=== PATIENT | male | born 1940 | race Caucasian/White ===

== ENCOUNTER 2016-11-30 08:19 | Emergency (ER) | payer BC, OTHER ==
[~2016-11-30] VITALS: Ht 180.3 cm; Wt 81.5 kg
[~2016-11-30 08:19] MED LIST: ALPR0.5T PO; CLX/20 PO; ZONI100C39 PO
[2016-11-30 08:23] VITALS: TEMP 36.7; Ht 180.3 cm; Wt 81.5 kg
--- NOTE | 2016-11-30 09:00 | EMERGENCY ROOM VISIT NOTE ---
History Report prepared by Prudencio: Igor Brumfield Under the Supervision of: Dr. Meka Pearson D.O. First contact with patient: 08:30 Chief Complaint: CONFUSION Stated Complaint: CONFUSION Nursing Triage Summary: ALTERED MENTAL STATUS. TOUNGE PAIN FROM BITE. POSSIBLE RECENT SEIZURE, HX OF SEIZURES. VOMITING AND LETHARGY YESTERDAY. History of Present Illness The patient is a 76 year old male who presents to the Emergency Room with complaints of intermittent confusion beginning 2 days ago. Per the patient's daughter, she believes he may have had some seizures over the last 2 days. He vomited 2 days ago, and may have been dehydrated as he slept all day this past weekend. She gave him Pedialyte. The patient has been brought in to the ER before for similar symptoms. He felt fine yesterday, but did not recall much from the day before. He was unable to remember his girlfriend's name in triage, but was able to remember while in the room. This morning he called and noted he did not feel right, and felt like he was going to have a seizure. The patient typically will stare, and his hands or feet will tremor during these seizure episodes. The patient states that he fell off his horse 6 years ago, and since then has been having recurrent seizures. He denies having seizures prior to the horse accident. He denies having any fever, chills, chest pain, shortness of breath, diarrhea, or leg cramping or swelling. He also denies any nausea or vomiting since vomiting 2 days ago. He denies any recent falls, and notes he has felt somewhat tired but not necessarily weak. He admits to biting his tongue 2 days ago. 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 He reports taking Zonegran regularly, but has not taken any this morning yet. He also takes Xanax to help with sleeping, which he believes he last took 2 days ago. The patient follows with Dr. Rubalcava in neurology. Source of History: patient, family Onset: 2 days ago Position: head Quality: other (confusion) Timing: intermittent Associated Symptoms: + fatigue, + nausea, + vomiting, No SOB, No chest pain , No chills, No diarrhea, No fevers, No weakness Note: Patient also denies leg cramping Review of Systems See HPI for pertinent positives & negatives. A total of 10 systems reviewed and were otherwise negative. Past Medical & Surgical Medical Problems: (1) Anxiety (2) Depression (3) Seizure Surgical Problems: (1) H/O colonoscopy (2) H/o mastoid procedure (3) History of cataract surgery Family History Cancer Social History Smoking Status: Never Smoker Drug Use: none Marital Status: Housing Status: lives with family Occupation Status: retired Current/Historical Medications Scheduled Alprazolam (Xanax), 0.5 MG PO QPM Zonisamide (Zonegran), 300 MG PO Q12 Allergies Coded Allergies: No Known Allergies (Unverified , 11/30/16) Physical Exam Vital Signs Date Time Temp Pulse Resp B/P Pulse Ox O2 Delivery O2 Flow Rate FiO2 11/30/16 10:31 61 17 136/65 96 11/30/16 09:53 60 17 126/76 96 11/30/16 08:23 36.7 72 18 141/81 95 Room Air Physical Exam General: Patient is sometimes slow to answer questions. HEENT: Head - normocephalic and atraumatic. Pupils are equal, round, and reactive to light. Extraocular eye muscles are intact and sclera are anicteric. Ears - bilaterally patent canals with noninjected tympanic membranes and no evidence of hemotympanum. Nose - moist nasal mucosa without discharge. Mouth - moist buccal mucosa. Oropharynx is nonerythematous and there is no tonsillar exudate or edema noted. Neck: Supple; no JVD, nuchal rigidity, cervical lymphadenopathy. Heart: Regular rate and rhythm. There is a normal S1 and S2 with no murmurs, clicks, or gallops appreciated. Lungs: Clear to auscultation bilaterally with no wheezes, rales, or rhonchi. Abdomen: Soft, completely nontender, nondistended, with good bowel sounds. There are no palpable pulsatile masses or hepatosplenomegaly. There is no guarding, rigidity, or rebound noted. Extremities: No evidence of cyanosis, clubbing, or edema. There are easily palpable peripheral pulses. Neuro:The patient is awake and alert, oriented to day, time, and place. Muscle strength is 5/5 in all 4 extremities. The patient has equal neurology hospitalist strength and equal pedal push and pull. There are no cerebellar signs. Medical Decision & Procedures ER Provider Diagnostic Interpretation: Radiology results as stated below per my review and the radiologist's interpretation: CT OF THE HEAD WITHOUT CONTRAST FINDINGS: No acute intracranial hemorrhage, midline shift or mass effect is present. Ventricular system is stable. Basilar cisterns are patent. There are no extra axial collections. Marshall-white differentiation is maintained. There are no findings to suggest acute dural sinus thrombosis or acute territorial infarct. There are no significant calvarial abnormalities. Visualized portions of the sinuses and the mastoid air cells are clear. IMPRESSION: No acute intracranial findings. Electronically signed by: Rex Carvajal M.D. 11/30/2016 9:19 AM Dictated Date/Time: 11/30/2016 9:16 AM Laboratory Results 11/30/16 08:55 Red Blood Count 4.74, Mean Corpuscular Volume 88.2, Mean Corpuscular Hemoglobin 31.9, Mean Corpuscular Hemoglobin Concent 36.1, Mean Platelet Volume 8.9, Neutrophils (%) (Auto) 69.1, Lymphocytes (%) (Auto) 18.2, Monocytes (%) (Auto) 11.4, Eosinophils (%) (Auto) 0.5, Basophils (%) (Auto) 0.6, Neutrophils # (Auto ) 4.36, Lymphocytes # (Auto) 1.15, Monocytes # (Auto) 0.72, Eosinophils # (Auto ) 0.03, Basophils # (Auto) 0.04 11/30/16 08:55 Test 11/30/16 08:55 White Blood Count 6.31 K/uL (4.8-10.8) Red Blood Count 4.74 M/uL (4.7-6.1) Hemoglobin 15.1 g/dL (14.0-18.0) Hematocrit 41.8 % (42-52) Mean Corpuscular Volume 88.2 fL (80-100) Mean Corpuscular Hemoglobin 31.9 pg (25-34) Mean Corpuscular Hemoglobin Concent 36.1 g/dl (32-36) Platelet Count 208 K/uL (130-400) Mean Platelet Volume 8.9 fL (7.4-10.4) Neutrophils (%) (Auto) 69.1 % Lymphocytes (%) (Auto) 18.2 % Monocytes (%) (Auto) 11.4 % Eosinophils (%) (Auto) 0.5 % Basophils (%) (Auto) 0.6 % Neutrophils # (Auto) 4.36 K/uL (1.4-6.5) Lymphocytes # (Auto) 1.15 K/uL (1.2-3.4) Monocytes # (Auto) 0.72 K/uL (0.11-0.59) Eosinophils # (Auto) 0.03 K/uL (0-0.5) Basophils # (Auto) 0.04 K/uL (0-0.2) RDW Standard Deviation 41.9 fL (36.4-46.3) RDW Coefficient of Variation 13.0 % (11.5-14.5) Immature Granulocyte % (Auto) 0.2 % Immature Granulocyte # (Auto) 0.01 K/uL (0.00-0.02) Urine Color YELLOW Urine Appearance CLEAR (CLEAR) Urine pH 7.0 (4.5-7.5) Urine Specific [place] 1.010 (1.000-1.030) Urine Protein NEG (NEG) Urine Glucose (UA) NEG (NEG) Urine Ketones NEG (NEG) Urine Occult Blood TRACE (NEG) Urine Nitrite NEG (NEG) Urine Bilirubin NEG (NEG) Urine Urobilinogen NEG (NEG) Urine Leukocyte Esterase TRACE (NEG) Urine WBC (Auto) 1-5 /hpf (0-5) Urine RBC (Auto) 0-4 /hpf (0-4) Urine Hyaline Casts (Auto) 0 /lpf (0-5) Urine Epithelial Cells (Auto) 5-10 /lpf (0-5) Urine Bacteria (Auto) NEG (NEG) Anion Gap 9.0 mmol/L (3-11) Est Creatinine Clear Calc Drug Dose 73.9 ml/min Estimated GFR () 94.0 Estimated GFR (Non- 81.1 BUN/Creatinine Ratio 15.8 (10-20) Calcium Level 8.9 mg/dl (8.5-10.1) Total Bilirubin 0.9 mg/dl (0.2-1) Aspartate Amino Transf (AST/SGOT) 21 U/L (15-37) Alanine Aminotransferase (ALT/SGPT) 22 U/L (12-78) Alkaline Phosphatase 82 U/L (45-117) Total Protein 6.8 gm/dl (6.4-8.2) Albumin 3.8 gm/dl (3.4-5.0) Globulin 3.0 gm/dl (2.5-4.0) Albumin/Globulin Ratio 1.3 (0.9-2) Thyroid Stimulating Hormone (TSH) 1.100 uIu/ml (0.300-4.500) Laboratory results per my review. ED Course 0837: Past medical records reviewed. The patient was evaluated in room B3B. A complete history and physical exam was performed. An IV lock was initiated and labs are drawn as above. The patient went for a CT scan of the brain which was unremarkable. His mental status seemed to clear while he was here in the emergency room. A Zonnegran level was obtained. 1005: Discussed the patient's case with Dr. Ray. She wants the patient to follow up with Dr. Rubalcava, Neurology, tomorrow to discuss dosing of Zonegran. 1030: Upon reevaluation, the patient is doing well. I discussed findings and results with the patient. He verbalized agreement of the treatment plan. The patient was discharged home. Medical Decision The patient is a 76 year old male who presents to the Emergency Room with complaints of intermittent confusion beginning 2 days ago. Differential Diagnoses: Intracranial process, recurrent seizure, medication noncompliance, and dehydration. Laboratory Interpretations: WBC of 6.3; stable H&H; normal TSH; glucose of 101; normal renal function; normal LFTs; UA shows trace blood, trace leukocyte esterase, 5-10 epithelial cells. This is a 76-year-old male who presents to the emergency department after having some seizures on Thursday where he bit the tip of his tongue. This was thought to be secondary to some vomiting he had. His daughter explains that is not unusual for him to have seizures when he becomes dehydrated. The patient was noted to be confusing and this morning and again was thought to be postictal. The daughter brought him here for evaluation. He states that he continues to take his usual dose of Zonnegran. Laboratory studies revealed no evidence of dehydration. I did submit the [employer] paperwork as the patient appears to have had some seizures over the weekend. I've asked the patient he was somewhat of the next couple of days until he is cleared by neurology. If the patient continues to have seizures at home, they're to return here to the emergency department or discussed this with Dr. Rubalcava. Consults Time Called: [id number] Consulting Physician[place], [facility] [place]ed Call: [phone] Discussed the patient's case with Dr. Ray. She wants the patient to follow up with Dr. Rubalcava, Neurology, tomorrow to discuss dosing of Zonegran. Impression Primary Impression: Seizure Scribe Attestation The scribe's documentation has been prepared under my direction and personally reviewed by me in its entirety. I confirm that the note above accurately reflects all work, treatment, procedures, and medical decision making performed by me. Departure Information Dispostion Home / Self-Care Referrals No Doctor, Assigned (PCP) Patient Instructions My [facility] Additional Instructions No driving until cleared by Neurology. Follow up with Dr. Rubalcava in the morning to discuss dose of Zonnegran No work until cleared by Dr. Rubalcava Return to the ER for additional seizures. Keep yourself well-hydrated You must be with someone at all times til cleared by Neurology
[2016-11-30 09:08] LABS: BASO % 0.6 %; BASO ABS # 0.04 K/uL (0-0.2); COMPLETE YES; EOS % 0.5 %; HEMATOCRIT 41.8 % (42-52); IG% 0.2 %; LYMPH % 18.2 %; LYMPH ABS # 1.15 K/uL (1.2-3.4); MEAN CELL VOLUME 88.2 fL (80-100); MEAN CORPUSCULAR HEMOGLOBIN 31.9 pg (25-34); MEAN CORPUSCULAR HGB CONC 36.1 g/dl (32-36); MEAN PLATELET VOLUME 8.9 fL (7.4-10.4); MONO % 11.4 %; NEUT % 69.1 %; PLATELET COUNT 208 K/uL (130-400); RED BLOOD COUNT 4.74 M/uL (4.7-6.1); WHITE BLOOD COUNT 6.31 K/uL (4.8-10.8)
[2016-11-30 09:15] LABS: URINE APPEARANCE CLEAR (CLEAR); URINE BILIRUBIN NEG (NEG); URINE COLOR YELLOW; URINE NITRITE NEG (NEG); UROBILINOGEN NEG (NEG)
[2016-11-30 09:20] LABS: MANUAL MICROSCOPIC REQUIRED? NO; REVIEW REQ? NO
--- NOTE | 2016-11-30 09:20 | DIAGNOSTIC IMAGING REPORT ---
CT OF THE HEAD WITHOUT CONTRAST CLINICAL HISTORY: Altered mental status. Recurrent seizures. COMPARISON STUDY: Head CT and MRI the brain February 14, 2016. CT DOSE: 537.48 mGy.cm TECHNIQUE: Helical axial images of the head were obtained without IV contrast. Automated exposure control was utilized for the study. FINDINGS: No acute intracranial hemorrhage, midline shift or mass effect is present. Ventricular system is stable. Basilar cisterns are patent. There are no extra axial collections. Marshall-white differentiation is maintained. There are no findings to suggest acute dural sinus thrombosis or acute territorial infarct. There are no significant calvarial abnormalities. Visualized portions of the sinuses and the mastoid air cells are clear. IMPRESSION: No acute intracranial findings. Electronically signed by: Rex Carvajal M.D. 11/30/2016 9:19 AM Dictated Date/Time: 11/30/2016 9:16 AM
[2016-11-30 09:28] LABS: BUN/CREATININE RATIO 15.8 (10-20); CREATININE 0.92 mg/dl (0.60-1.40); POTASSIUM 3.8 mmol/L (3.5-5.1)
[2016-11-30 09:32] LABS: CALCIUM 8.9 mg/dl (8.5-10.1)
[2016-11-30 09:39] LABS: ALB/GLOB RATIO 1.3 (0.9-2); THYROID STIMULATING HORMONE 1.1 uIu/ml (0.300-4.500)
[2016-11-30 10:31] VITALS: BP 136/65; PULSE 61; O2SAT 96
== END 2016-11-30 11:00 | disposition home or self-care (01) ==
LOC: C.EDB 08:21
DX: R56.9 Unspecified convulsions (principal); F32.9 Major depressive disorder, single episode, unspecified; F41.9 Anxiety disorder, unspecified

== ENCOUNTER 2017-03-25 18:56 | Emergency (ER) | payer BC ==
[~2017-03-25] VITALS: Ht 177.8 cm; Wt 82.8 kg
[~2017-03-25 18:56] MED LIST changes: -CLX/20 PO
[2017-03-25 19:00] VITALS: O2SAT 97
[2017-03-25 19:04] VITALS: TEMP 36.7; Ht 177.8 cm; Wt 82.8 kg
[2017-03-25] MEDS ORDERED: SODIUM CHLORIDE 0.9% 1000ML 1,000 ML IV STA (19:11)
[2017-03-25] MEDS ORDERED: SODIUM CHLORIDE 0.9% 1000ML 250 ML IV STA (19:11)
[2017-03-25] MEDS ORDERED: MULT-506 PO (19:14)
[2017-03-25 19:46] LABS: BASO % 0.7 %; BASO ABS # 0.04 K/uL (0-0.2); COMPLETE YES; EOS % 2.2 %; HEMATOCRIT 39.5 % (42-52); IG% 0.3 %; LYMPH ABS # 1.71 K/uL (1.2-3.4); MEAN CELL VOLUME 88.4 fL (80-100); MEAN CORPUSCULAR HEMOGLOBIN 31.3 pg (25-34); MEAN CORPUSCULAR HGB CONC 35.4 g/dl (32-36); MEAN PLATELET VOLUME 9.3 fL (7.4-10.4); MONO % 8.5 %; NEUT % 59.3 %; PLATELET COUNT 180 K/uL (130-400); RED BLOOD COUNT 4.47 M/uL (4.7-6.1); WHITE BLOOD COUNT 5.89 K/uL (4.8-10.8)
--- NOTE | 2017-03-25 19:58 | DIAGNOSTIC IMAGING REPORT ---
SINGLE VIEW CHEST CLINICAL HISTORY: Atypical chest pain. FINDINGS: 2 AP, portable, upright chest radiographs are compared to study dated 02/04/2016. The examination is degraded by portable technique and patient rotation. The heart is enlarged. The pulmonary vasculature is noncongested. Chronic interstitial thickening is similar to previous. A calcified granuloma is again noted at the left lung base. The lungs and pleural spaces are otherwise clear. No pneumothorax is seen. The skeletal structures are osteopenic. The bony thorax is grossly intact. IMPRESSION: Cardiomegaly with no acute cardiopulmonary abnormality. Electronically signed by: Aidan Flower M.D. 03/25/2017 7:57 PM Dictated Date/Time: 03/25/2017 7:56 PM
[2017-03-25 20:11] LABS: BUN/CREATININE RATIO 18.6 (10-20); CALCIUM 8.3 mg/dl (8.5-10.1); CREATININE 0.97 mg/dl (0.60-1.40); POTASSIUM 3.6 mmol/L (3.5-5.1)
[2017-03-25 20:22] LABS: CKMB/CK RATIO 2.1 (0-3.0); THYROID STIMULATING HORMONE 0.782 uIu/ml (0.300-4.500)
--- NOTE | 2017-03-25 21:59 | EMERGENCY ROOM VISIT NOTE ---
History Report prepared by Prudencio: Dianelys Castillo Under the Supervision of: Dr. Igor Aguilera M.D. 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 The patient was sitting with friends when he started to blankly stare and become unresponsive. He then stood up and appeared to start disrobing. He then sat back down and came to. The patient does not remember what happened. He notes that he has a history of petit mal seizures. He has had seizures like this in the past and usually does not remember his seizures. He did not have any incontinence, tongue bite, or fall. He currently feels back to normal. He was feeling well prior to the episode. He denies any recent activity out of the ordinary. He denies any hematochezia, melena, numbness, weakness, headache, dysuria, fever, or chest pain. He denies any head injury. He notes that he has been sleeping less recently. He is on medications for seizure and denies any missed medications. He follows with neurology. He denies any other medical problems including heart problems or diabetes. He notes that he does not drive due to his history of seizures. 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 Review of Systems See HPI for pertinent positives & negatives. A total of 10 systems reviewed and were otherwise negative. Past Medical & Surgical Medical Problems: (1) Anxiety (2) Depression (3) Seizure Surgical Problems: (1) H/O colonoscopy (2) H/o mastoid procedure (3) History of cataract surgery Old medical records were reviewed. Nurse's notes were reviewed and I agree with. Family History Cancer Social History Smoking Status: Never Smoker Drug Use: none Marital Status: Housing Status: lives with family Occupation Status: retired Current/Historical Medications Scheduled Alprazolam (Xanax), 0.5 MG PO QPM Multivitamin (Multivitamin), 1 TAB PO DAILY Zonisamide (Zonegran), 300 MG PO Q12 Allergies Coded Allergies: No Known Allergies (Unverified , 03/25/17) Physical Exam Vital Signs Date Time Temp Pulse Resp B/P (MAP) Pulse Ox O2 Delivery O2 Flow Rate FiO2 03/25/17 22:07 90 18 173/95 98 03/25/17 21:36 76 20 98 03/25/17 21:30 162/90 03/25/17 21:21 75 21 98 03/25/17 21:08 170/98 03/25/17 21:06 98 15 03/25/17 21:03 190/152 03/25/17 20:51 65 16 98 03/25/17 20:46 61 22 99 03/25/17 20:31 57 20 99 03/25/17 20:30 184/95 03/25/17 20:16 53 18 98 03/25/17 20:01 53 19 98 03/25/17 19:56 55 19 99 03/25/17 19:51 57 21 99 03/25/17 19:46 55 20 98 03/25/17 19:41 58 24 98 03/25/17 19:36 56 22 98 03/25/17 19:31 56 26 98 03/25/17 19:30 159/87 03/25/17 19:26 59 19 03/25/17 19:21 62 96 03/25/17 19:16 60 19 97 03/25/17 19:11 60 97 03/25/17 19:07 59 03/25/17 19:06 158/77 03/25/17 19:04 36.7 59 18 145/77 97 Room Air 03/25/17 19:00 97 Room Air Physical Exam General: Non ill appearing older male in no acute distress. GCS of 15. Well developed well nourished, breathing comfortably on room air. Normal speech HEENT: Normal cephalic atraumatic. Pupils are equal round and reactive to light. Extraocular movements are intact. Oropharynx is pink with moist mucous membranes. No swelling of the mouth lips or tongue. No tongue bite. Neck: Supple with a midline trachea. No meningeal signs or stiffness, no JVD or bruits. No Stridor. Chest: Clear to auscultation bilaterally. No wheezes or rhonchi. No increased work of breathing. Heart: regular rate and rhythm. Abdomen: Soft nontender, nondistended without rebound guarding or rigidity. Extremities: No cyanosis clubbing or edema. No calf tenderness or assymetry Spine/Back. Non tender to palpation. No CVA tenderness Skin: Good turgor without rashes. Neurologic exam: Cranial nerves two through 12 are intact. Motor and sensation are intact and symmetrical throughout. Finger to nose intact. No tremor. Medical Decision & Procedures ER Provider Diagnostic Interpretation: X-ray results as stated below per interpretation by me and the radiologist: SINGLE VIEW CHEST CLINICAL HISTORY: Atypical chest pain. FINDINGS: 2 AP, portable, upright chest radiographs are compared to study dated 02/04/2016. The examination is degraded by portable technique and patient rotation. The heart is enlarged. The pulmonary vasculature is noncongested. Chronic interstitial thickening is similar to previous. A calcified granuloma is again noted at the left lung base. The lungs and pleural spaces are otherwise clear. No pneumothorax is seen. The skeletal structures are osteopenic. The bony thorax is grossly intact. IMPRESSION: Cardiomegaly with no acute cardiopulmonary abnormality. Electronically signed by: Aidan Flower M.D. 03/25/2017 7:57 PM Dictated Date/Time: 03/25/2017 7:56 PM Laboratory Results 03/25/17 19:30 Red Blood Count 4.47, Mean Corpuscular Volume 88.4, Mean Corpuscular Hemoglobin 31.3, Mean Corpuscular Hemoglobin Concent 35.4, Mean Platelet Volume 9.3, Neutrophils (%) (Auto) 59.3, Lymphocytes (%) (Auto) 29.0, Monocytes (%) (Auto) 8.5, Eosinophils (%) (Auto) 2.2, Basophils (%) (Auto) 0.7, Neutrophils # (Auto) 3.49, Lymphocytes # (Auto) 1.71, Monocytes # (Auto) 0.50, Eosinophils # (Auto) 0.13, Basophils # (Auto) 0.04 03/25/17 19:30 Test 03/25/17 19:30 03/25/17 19:35 White Blood Count 5.89 K/uL (4.8-10.8) Red Blood Count 4.47 M/uL (4.7-6.1) Hemoglobin 14.0 g/dL (14.0-18.0) Hematocrit 39.5 % (42-52) Mean Corpuscular Volume 88.4 fL (80-100) Mean Corpuscular Hemoglobin 31.3 pg (25-34) Mean Corpuscular Hemoglobin Concent 35.4 g/dl (32-36) Platelet Count 180 K/uL (130-400) Mean Platelet Volume 9.3 fL (7.4-10.4) Neutrophils (%) (Auto) 59.3 % Lymphocytes (%) (Auto) 29.0 % Monocytes (%) (Auto) 8.5 % Eosinophils (%) (Auto) 2.2 % Basophils (%) (Auto) 0.7 % Neutrophils # (Auto) 3.49 K/uL (1.4-6.5) Lymphocytes # (Auto) 1.71 K/uL (1.2-3.4) Monocytes # (Auto) 0.50 K/uL (0.11-0.59) Eosinophils # (Auto) 0.13 K/uL (0-0.5) Basophils # (Auto) 0.04 K/uL (0-0.2) RDW Standard Deviation 41.9 fL (36.4-46.3) RDW Coefficient of Variation 13.0 % (11.5-14.5) Immature Granulocyte % (Auto) 0.3 % Immature Granulocyte # (Auto) 0.02 K/uL (0.00-0.02) Anion Gap 8.0 mmol/L (3-11) Est Creatinine Clear Calc Drug Dose 67.9 ml/min Estimated GFR () 88.1 Estimated GFR (Non- 76.1 BUN/Creatinine Ratio 18.6 (10-20) Calcium Level 8.3 mg/dl (8.5-10.1) Total Bilirubin 0.4 mg/dl (0.2-1) Direct Bilirubin 0.2 mg/dl (0-0.2) Aspartate Amino Transf (AST/SGOT) 24 U/L (15-37) Alanine Aminotransferase (ALT/SGPT) 33 U/L (12-78) Alkaline Phosphatase 82 U/L (45-117) Total Creatine Kinase 101 U/L (39-308) Creatine Kinase MB 2.1 ng/ml (0.5-3.6) Creatine Kinase MB Ratio 2.1 (0-3.0) Total Protein 6.4 gm/dl (6.4-8.2) Albumin 3.5 gm/dl (3.4-5.0) Lipase 92 U/L (73-393) Thyroid Stimulating Hormone (TSH) 0.782 uIu/ml (0.300-4.500) Laboratory studies as stated above per my review. Medications Administered Medications (Trade) Dose Ordered Sig/Ha Route Start Time Stop Time Status Last Admin Dose Admin Sodium Chloride 250 ml @ 999 mls/hr Q16M STAT IV 03/25/17 19:11 03/25/17 19:26 DC 03/25/17 19:11 999 MLS/HR Sodium Chloride 1,000 ml @ 100 mls/hr Q10H STAT IV 03/25/17 19:11 03/25/17 22:36 DC 03/25/17 19:31 100 MLS/HR ECG Indication: syncope Rate (beats per minute): 62 Rhythm: normal sinus Findings: no acute ischemic change, no ectopy Comparison ECG Date: 04-Feb-2016 Change: no significant change ED Course 1902: Past medical records reviewed. The patient was evaluated in room B2, and a complete history and physical examination were performed. 1910: NSS 1000 ml @ 100 mls/hr IV, NSS 250 ml @ 999 mls/hr IV. 2005: I reevaluated the patient. He is resting comfortably. 2109: I reevaluated the patient. I spoke with his son in law who says that the patient has been having these episodes for a while now and had one more while in the ED. He has not had any falls or injuries and has had these episodes while standing also. He would like to go home and is comfortably going home. 2138: I discussed the patient's case with Dr. Sosa, [facility] neurology. He recommends the patient go home and follow up with neurology tomorrow. 2147: Upon reevaluation, the patient is resting comfortably. I discussed the results and treatment plan with him and family. They verbalized agreement of the treatment plan. The patient was discharged home. Medical Decision Differentials include, but are not limited to; seizure, syncope, arrhythmia, electrolyte or metabolic abnormality, vasovagal episode. This patient comes in as described above. He has a history of having complex partial seizures and had a similar episode to his seizures where he was staring and then he started making some movements with his hands where he was trying to get his shirt off. He is back to baseline upon arrival. He denies any complaints there is no injuries. He does not drive as his license has been previously pulled. EKG does not suggest acute coronary syndrome or arrhythmia. 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 He has no acute electrolyte or metabolic abnormalities. He had no trauma and has a normal neurologic exam and I do not think a CAT scan is warranted at this point. He's had several the past including one just a couple months ago last time he was here.. His son-in- law arrives and shortly after he did he had another episode where he stared off and his son felt like he had another partials seizure. I did discuss case with Dr. Sosa who feels the patient go home and call Dr. Rubalcava tomorrow and for further instructions on medications. He recommended patient take an extra dose of his benzo this evening. The patient strongly desires to go home and the son- in-law also agrees he will stay with the son-in-law tonight and return if: Worsening ov symptoms, fever or chills, any new problems or concerns. He should avoid any activity where he could hurt himself or others if he has a seizure. Medication Reconcilliation Current Medication List: was personally reviewed by me Blood Pressure Screening Patient's blood pressure: Elevated blood pressure Blood pressure disposition: Elevated BP felt to be situational Consults Time Called: 2135 Consulting Physician: Dr. Sosa, [facility] neurology Returned Call: [phone] I discussed the patient's case with him. He recommends the patient go home and follow up with neurology tomorrow. Impression Primary Impression: Seizure Scribe Attestation The scribe's documentation has been prepared under my direction and personally reviewed by me in its entirety. I confirm that the note above accurately reflects all work, treatment, procedures, and medical decision making performed by me. Departure Information Dispostion Home / Self-Care Referrals Manjit Ryan M.D.([facility]) (PCP) Forms HOME CARE DOCUMENTATION FORM, IMPORTANT VISIT INFORMATION Patient Instructions My [facility] Additional Instructions Rest Drink plenty of fluids Use an extra Alprazolam 0.5 mg at bedtime Call Dr. Kuldip fuentes for recheck and recommendations on further medications Avoid any activities such as swimming or operating machinery that he could hurt herself or others if you have a seizure
[2017-03-25 22:07] VITALS: BP 173/95; PULSE 90; O2SAT 98
== END 2017-03-25 22:08 | disposition home or self-care (01) ==
LOC: EDBD 18:56 → C.EDB 18:57
DX: G40.909 Epilepsy, unspecified, not intractable, without status epilepticus (principal); F41.9 Anxiety disorder, unspecified; F32.9 Major depressive disorder, single episode, unspecified; Z98.49 Cataract extraction status, unspecified eye; Z98.890 Other specified postprocedural states; Z79.899 Other long term (current) drug therapy; Z80.9 Family history of malignant neoplasm, unspecified

== ENCOUNTER → 2017-04-23 | Outpatient (CLI) | payer BC ==
[~2017-04-23] MED LIST changes: +MULT-506 PO
--- NOTE | 2017-04-24 06:38 | PAP/PSG TECHNICIAN REPORT ---
[facility] Human Factors Advisor Lead Polysomnogram Report Study name: None Report date: 04/24/2017 Study date: 04/23/2017 Referring Physician: America PEREZ M.D. Name: SHEELA KEBEDE Interpreting Physician: Eris Perez M.D. Date of : 1940 Human Factors Advisor Lead: Amber Ashley RPSGT. Sex: Male Age: 76 Study Type: PSG Weight: 177 lbs 16 in Height: 76 years, Height 5' 11" Neck Circum: BMI: 24.68 Medications: ALPRAZOLAM 0.5 MG, ZONEGRAN 100 MG Patient History 76 yr-old male here for a baseline/split study. He has a history of some insomnia and snoring. He has a history of absence seizures. His Houlka scale is 5. The test was started on room air. The test includes a full seizure montage due to his history of seizure activity. ETCO2 testing was not utilized during this study. Room 1 Parameters Monitored NPSG: E1-M2, E2-M1, Fp1-M2, Fp2-M1, F3-M2, F4-M2, F4-M1, C3-M2, C4-M2, C4-M1, O1-M2, O2-M2, O2-M1, T3-M2, T4-M1, P3-M2, P4-M1, CHIN1, CHIN2, HR, EKG, Legs, PFLOW, SNOR, FLOW, CFLOW, Tidal Volume, THOR, ABDO, SpO2, PLTH, CPRESS, ETCO2 Wave, ETCO2, pH Sleep Architecture Sleep Stages Time at Lights Off 9:41:02 PM STAGES Time (min.) TST (%) Time at Lights On 5:33:32 AM Wake 118.5 -- Total Recording Time (TRT) 472.50 min. N1 29.5 8 Total Sleep Period (TSP) 423.0 min. N2 230.0 65 Total Sleep Time (TST) 354.0min. N3 10.5 3 Awake Time 118.5 min. REM 84.0 24 Wake after Sleep Onset 70.0 min. Sleep Efficiency (SE) 75 % Sleep Onset Latency (CLOTILDE) 48.5 min. Number of Stage 1 Shifts None Awakenings 22 Stage Changes 119 Number of REM periods 3 REM 84.0 24 REM Latency 70.0 min. NREM 270.0 76 Body Position Analysis Supine Right Left Side Prone Vertical Total Sleep Time (min.) 138.0 0.0 275.0 274.98 0.0 0.0 Total Sleep Time (%) 22% 0% 78% 78 0% N/A% Total Sleep Time REM (min.) 24.0 0.0 60.0 None 0.0 0.0 Total Sleep Time NREM (min.) 55.0 0.0 215.0 None 0.0 0.0 Intermittent Wake (min.) 59.0 0.0 59.5 None 0.0 0.0 Total Sleep Period (%) 22% None None None None None Arousals Myoclonus (PLM) * Events Count Index Events Count Index Spontaneous 37 6 Events Awake (PLMW) 100 50.6 Respiratory 3 0.7 Events Asleep w/ Arousal (PLMA) 33 5.6 PLM 32 6 Events Asleep w/o Arousal (PLMS) 310 52.5 Snoring 2 0 Total Asleep 343 58.1 Total 74 13 Total 443 56 Respiratory Analysis * CA OA MA CH H RERA Total Count 0 2 0 0 17 1 19 Index 0.0 0.3 0.0 0 2.9 0 3.4 Mean Duration 0.0 13.7 0.0 0.00 20.7 15.5 19.8 Longest Duration 0.0 14.9 0.0 0.00 0.0 15.5 35.1 Respiratory Event Summary Total Supine ~Supine Right Left Prone REM NREM Apneas Count 2 2 0 N/A 0 N/A 0 2 Index 0.3 2 0 N/A 0.0 N/A 0 0 Hypopneas (4% Desat) Count 17 16 1 N/A 1 N/A 14 3 Index 2.9 12.1 0 N/A 0.2 N/A 10.0 0.7 Apneas & All Hypopneas Count 19 18 1 N/A 1 N/A 14 5 Index 3.2 14 0 N/A 0 N/A 10.0 1.1 Respiratory Events (Guide Dog Trainer+All Hyp+RERA) Count 19 19 1 N/A 1 N/A 14 5 Index 3.4 14 0 N/A 0.2 N/A 10.0 1.3 Respiratory Related Arousal Count 3 19 0 N/A 0 N/A 0 4 Index 0.7 3 0 N/A 0 N/A 0 1 Snoring Analysis Supine Right Left Prone REM NREM Total Snore duration 1.9 min Snores count 43 N/A 44 N/A 40 47 87 Snore mean duration 1.3 Sec Snores index 33 N/A 10 N/A 28.6 10.4 14.7 TST with snoring (%) 0.5% Desaturation Event Summary: Minimum %SpO2 Event Count Mean/Min/Max Duration(sec.) Desaturation Index % Time In Bed > 90 18 31.0 / 4.5 / 51.3 2.3 99.8 86 - 90 0 N/A 0.0 0.1 81 - 85 1 6.0 / 6.0 / 6.0 221.5 0.1 76 - 80 0 N/A 0.0 0.0 71 - 75 0 N/A 0.0 0.0 66 - 70 0 N/A 0.0 0.0 61 - 65 0 N/A 0.0 0.0 56 - 60 0 N/A 0.0 0.0 51 - 55 0 N/A 0.0 0.0 < 50 0 N/A 0.0 0.0 Total REM NREM Awake <50% 0.0 min. 0.0 min. 0.0 min. 0.0 min. 51 - 60% 0.0 min. 0.0 min. 0.0 min. 0.0 min. 61 - 70% 0.0 min. 0.0 min. 0.0 min. 0.0 min. 71 - 80% 0.0 min. 0.0 min. 0.0 min. 0.0 min. 81 - 90% 0.9 min. 0.5 min. 0.2 min. 0.2 min. 91 - 100% 460.5 min. 83.4 min. 269.1 min. 108.0 min. Average 96 96 96 96 Minimum SpO2 82 87 82 83 Desaturation Event Index 2.4 9.3 1.1 0.5 # Desat. Events below 89% 4 2 2 N/A Time(%) with Saturation below 89% 0.1 0.0 0.0 0.0 Time(min.) with Saturation below 89% 0.6 0.2 0.2 0.2 Time (mins) REM (mins) NREM (mins) % of TST SpO2 Below 90% 4 2 N2 0.1 SpO2 Below 88% 1 0 0 0 Heart Rate Analysis Min (bpm) Max (bpm) Average (bpm) Awake 32 127 57 NREM 32 92 55 REM 45 127 58 Overall 32 127 55 Supplemental O2 Values Minimum O2 level: None Value Start Time End Time Human Factors Advisor Lead Comments Mr. Kebede slept in the left and supine positions. Cardiac arrhythmias were noted (please refer to the printouts). PLMs were noted. No bruxism noted. Snoring was noted and scored as a 1 on a scale of 1 through 5. (0=no snoring, 5=snoring loud enough to be heard through a closed door or down the segal way) He did not meet specific Split-Night criteria during the diagnostic portion of this study. He awoke to use the restroom one time during the night. Mr. Kebede stated the he slept well. The final report will be interpreted and signed by a sleep physician. The completed physician report will then be placed in the patient medical record. Therapy (cm H2O) 0 TIB (min.) 472.5 TST (min.) 354.0 Sleep Onset (min.) 48.5 REM Onset From Sleep (min.) 70.0 Sleep Efficiency % 75 Wakefulness (%) 25 Wakefulness (min.) 118.5 NREM 1 (%) 8 NREM 1 (min.) 29.5 NREM 2 (%) 65 NREM 2 (min.) 230.0 NREM 3 (%) 3 NREM 3 (min.) 10.5 REM (%) 24 REM (min.) 84.0 # Arousals 74 Arousal Index 13 # Snore 87 Snore Index 14.7 AHI 3.2 AHI Supine 14 AHI Non-Supine 0 NREM AHI 1.1 REM AHI 10.0 RDI 3.4 # Obstructive Apnea 2 # Central Apnea 0 # Mixed Apnea 0 # Hypopneas 17 RERAs 1 Total Respiratory Events 20 Time Below SpO2 89% (min.) 0.4 Mean NREM SpO2 (%) 96 Mean REM SpO2 (%) 96 Mean Sleep SpO2 (%) 96 Min NREM SpO2 (%) 82 Min REM SpO2 (%) 87 Position Supine (min.) 138.0 Position Non-supine (min.) 275.0 LM Index Sleep 58.1 LM Index NREM 57.6 LM Index REM 60.0 Mean Heart Rate (bpm) 55 Min Heart Rate (bpm) 32
--- NOTE | 2017-05-11 19:19 | POLYSOMNOGRAPH REPORT ---
REFERRING PERSON: Dr. Gabriele Perez. SAFE AND VAULT MECHANIC: Amber Ashley. Mr. Kebede is a 76-year-old male sent for a split night sleep study. He has a history of insomnia and snoring. He also has a history of absence seizures. His Welch Sleepiness Scale score on the evening of this study is 5, BMI is 24.68. This sleep study included a full seizure montage due to seizure activity history. Following the technical and digital specifications of the [place] [employer] (AASM) a standard diagnostic polysomnogram was performed monitoring EEG, EOG, EMG (chin and leg deviations), oxygen saturation, body position, digital video, respiratory effort and airflow. The sleep Stage and event scoring was based on the AASM Manual for the Scoring of Sleep and Associated Events 2007 edition. Apneas are defined as a drop in the peak thermal sensor excursion by >90% of baseline for at least 10 seconds. Hypopneas were scored using the 4% oxygen desaturation rule (4A-Medicare) and a decrease in the nasal pressure excursions by >30% of baseline for at least 10 seconds. Respiratory effort-related arousal (RERA's) is defined as a sequence of breaths lasting at least 10 seconds characterized by increasing respiratory effort or flattening of the nasal pressure waveform leading to an arousal from sleep when the sequence of breaths does not meet criteria for an apnea or hypopnea. Apnea Hypopnea index (AHI) is defined as the number of apneas and hypopneas occurring in an hour of sleep. Respiratory disturbance index (RDI) is defined as the number of apneas, hypopneas, and RERA's occurring in an hour of sleep. Mr. Kebede's total sleep period time was 423 minutes. Total sleep time was 354 minutes. Sleep efficiency was 75%. Latency to sleep onset was 48.5 minutes. Wake after sleep onset was 70 minutes. Total non-REM sleep time was 270 minutes. He spent 8% of that time in N1 sleep, 65% in N2 sleep and 3% in N3 sleep. REM latency was 70 minutes. Total REM sleep time was 84 minutes or 24% of total sleep time. There were 74 cortical arousals from sleep. 37 of these arousals were spontaneous, 3 were due to respiratory events, 32 due to periodic limb movements of sleep and 2 were due to snoring. There were 343 periodic limb movements noted on this test. Limb movement index was 58.1. Limb movement with arousal index was 5.6. There were no central, 2 obstructive and no mixed apnea on this test. There were 17 hypopneas and 1 RERA. Apnea-hypopnea index was normal at 3.2. Supine AHI was 14, REM AHI was 10. 87 snoring events were recorded. Total sleep time with snoring was 0.5%. Mean saturation was 96% with brief desaturations less than 89%. Saturations were less than 89 for 0.6 minutes of recorded time. Premature atrial complexes were noted on EKG monitoring. Heart rates ranged from a low of 32 beats per minute to a high of 127 beats per minute during sleep. IMPRESSION AND PLAN: A 76-year-old male without evidence of sleep disordered breathing, nocturnal hypoxemia, bruxism or parasomnia on his sleep study. He did not have any obvious seizure activity noted. It appears that this patient's insomnia and snoring are not related to sleep disordered breathing.
== END | disposition home or self-care (01) ==
LOC: C.NEUR 20:00
PROVIDERS: ATTEND Family Medicine
DX: G47.33 Obstructive sleep apnea (adult) (pediatric) (principal); R06.83 Snoring

== ENCOUNTER 2017-08-31 17:53 | Inpatient (IN) | payer BC, OTHER ==
[~2017-08-31] VITALS: Ht 177.8 cm; Wt 79.0 kg
[2017-08-31] MEDS ORDERED: SODIUM CHLORIDE 0.9% 1000ML 1,000 ML IV STA (18:18)
[2017-08-31 18:32] LABS: BASO % 0.4 %; BASO ABS # 0.03 K/uL (0-0.2); EOS % 1.7 %; EOS ABS # 0.12 K/uL (0-0.5); HEMATOCRIT 44.5 % (42-52); HEMOGLOBIN 15.7 g/dL (14.0-18.0); IG# 0.02 K/uL (0.00-0.02); LYMPH % 20.8 %; LYMPH ABS # 1.47 K/uL (1.2-3.4); MEAN CELL VOLUME 88.8 fL (80-100); MEAN CORPUSCULAR HEMOGLOBIN 31.3 pg (25-34); MEAN CORPUSCULAR HGB CONC 35.3 g/dl (32-36); MEAN PLATELET VOLUME 9.3 fL (7.4-10.4); MONO % 8.9 %; MONO ABS # 0.63 K/uL (0.11-0.59); NEUT % 67.9 %; NEUT ABS # 4.79 K/uL (1.4-6.5); PLATELET COUNT 230 K/uL (130-400); RED CELL DISTRIBUTION WIDTH CV 13.1 % (11.5-14.5); RED CELL DISTRIBUTION WIDTH SD 42.4 fL (36.4-46.3); WHITE BLOOD COUNT 7.06 K/uL (4.8-10.8)
[2017-08-31 18:39] LABS: ALBUMIN 3.8 gm/dl (3.4-5.0); BLOOD UREA NITROGEN 23 mg/dl (7-18); CALCIUM 8.9 mg/dl (8.5-10.1); CARBON DIOXIDE 24 mmol/L (21-32); CREATININE 1.03 mg/dl (0.60-1.40); GLUCOSE 104 mg/dl (70-99); LIPASE 96 U/L (73-393); POTASSIUM 4.1 mmol/L (3.5-5.1); SODIUM 139 mmol/L (136-145)
--- NOTE | 2017-08-31 18:41 | DIAGNOSTIC IMAGING REPORT ---
CT HEAD WITHOUT CONTRAST (CT) CLINICAL HISTORY: Acute change in mental status COMPARISON STUDY: 11/30/2016 TECHNIQUE: Axial CT of the brain is performed from the vertex to the skull base. IV contrast was not administered for this examination. A dose lowering technique was utilized adhering to the principles of ALARA. CT DOSE: 687.98 mGy.cm FINDINGS: No intra or extra-axial mass lesions are visualized. There is no CT evidence of acute cortical infarction. There is no evidence of midline shift. There is no acute hemorrhage. No calvarial fractures are visualized. There are patchy white matter hypodensities likely on a small vessel basis. There is no evidence of pathologic ventricular dilatation. There is no evidence of acute sinusitis IMPRESSION: No acute intracranial findings Electronically signed by: Barron Torres M.D. 08/31/2017 6:40 PM Dictated Date/Time: 08/31/2017 6:39 PM
[2017-08-31 18:44] LABS: ALKALINE PHOSPHATASE 91 U/L (45-117); ALT/SGPT 25 U/L (12-78); AST/SGOT 16 U/L (15-37)
--- NOTE | 2017-08-31 19:17 | DIAGNOSTIC IMAGING REPORT ---
CHEST ONE VIEW PORTABLE CLINICAL HISTORY: Atypical chest pain COMPARISON STUDY: March 25, 2017 FINDINGS: The heart is mildly enlarged. There is no focal pulmonary consolidation. There is no overt failure. There are no pleural effusions.[ IMPRESSION: Mild cardiomegaly. No acute findings. Electronically signed by: Barron Torres M.D. 08/31/2017 7:15 PM Dictated Date/Time: 08/31/2017 7:15 PM
--- NOTE | 2017-08-31 20:39 | EMERGENCY ROOM VISIT NOTE ---
History Report prepared by Prudencio: Castillo Naranjo Under the Supervision of: Dr. Neal Cunningham M.D. First contact with patient: 17:57 Stated Complaint: CONFUSION, AMS History of Present Illness The patient is a 77 year old male who presents to the Emergency Room with complaints of an episode of confusion occurring shortly prior to arrival. He states that he was at work when his symptoms occurred. He states that he walked into a stairwell "looking to hang up a coat", and was very confused. 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 He states that a resident at work found him in the stairwell acting abnormally. He has a history of seizure- disorder and may have missed a few doses of his medication last week. The patient's previous seizures are generally absent seizures. He is normally not significantly confused following these episodes. He currently complains of bilateral ear ringing which began two days ago. The patient states that he had a little diarrhea this week. He feels that he may be dehydrated. He denies cough , fevers, nasal congestion, body aches, urinary symptoms, dizziness, nausea, or vomiting. The patient's most recent seizure was last week, but he had not had one for several months prior to that. Source of History: patient Onset: Shortly prior to arrival Quality: other (confusion) Timing: other (episode) Associated Symptoms: + diarrhea, No fevers, No cough, No nausea, No vomiting , No urinary symptoms Note: The patient denies dizziness, nasal congestion, body aches. He currently complains of bilateral ear ringing. Review of Systems See HPI for pertinent positives and negatives. A total of ten systems were reviewed and were otherwise negative. Past Medical & Surgical Medical Problems: (1) Anxiety (2) Depression (3) Seizure disorder Surgical Problems: (1) H/O colonoscopy (2) H/o mastoid procedure (3) History of cataract surgery Family History Cancer Social History Smoking Status: Never Smoker Drug Use: none Marital Status: Housing Status: lives with family Occupation Status: employed Current/Historical Medications Scheduled Alprazolam (Xanax), 1 TAB PO QPM Lamotrigine (Lamictal), 150 MG PO BID Zonisamide (Zonegran), 200 MG PO BID Allergies Coded Allergies: No Known Allergies (Unverified , 08/31/17) Physical Exam Vital Signs Date Time Temp Pulse Resp B/P (MAP) Pulse Ox O2 Delivery O2 Flow Rate FiO2 08/31/17 21:31 79 23 170/97 96 08/31/17 21:11 97 20 98 Room Air 08/31/17 21:01 131/112 08/31/17 20:56 90 27 97 08/31/17 20:41 96 21 96 08/31/17 20:27 105 08/31/17 20:26 95 21 97 08/31/17 20:20 163 08/31/17 20:11 114 24 99 08/31/17 20:06 116 31 99 Room Air 08/31/17 20:00 181/108 08/31/17 19:51 120 24 97 08/31/17 19:36 116 21 97 08/31/17 19:31 169/108 08/31/17 19:21 97 22 97 08/31/17 19:06 77 21 100 08/31/17 19:01 177/96 08/31/17 19:00 62 20 99 Room Air 08/31/17 18:58 182/95 08/31/17 18:06 76 08/31/17 18:04 98 Room Air 08/31/17 18:04 36.5 73 18 169/91 98 Room Air Physical Exam GENERAL: Awake, alert, fatigued-appearing, in no distress HENT: Normocephalic, atraumatic. Oropharynx with dry mucous membranes and otherwise unremarkable. EYES: Normal conjunctiva. Sclera non-icteric. NECK: Supple. No nuchal rigidity. FROM. No JVD. RESPIRATORY: Clear to auscultation. CARDIAC: Regular rate, normal rhythm. Extremities warm and well perfused. Pulses equal. ABDOMEN: Soft, non-distended. No tenderness to palpation. No rebound or guarding. No masses. RECTAL: Deferred. MUSCULOSKELETAL: Chest examination reveals no tenderness. The back is symmetrical on inspection without obvious abnormality. There is no CVA tenderness to palpation. No joint edema. LOWER EXTREMITIES: Calves are equal size bilaterally and non-tender. No edema. No discoloration. NEURO: Normal sensorium. No sensory or motor deficits noted. SKIN: No rash or jaundice noted. Medical Decision & Procedures ER Provider Diagnostic Interpretation: Radiology results as stated below per my review and radiologist interpretation: CT HEAD WITHOUT CONTRAST (CT) FINDINGS: No intra or extra-axial mass lesions are visualized. There is no CT evidence of acute cortical infarction. There is no evidence of midline shift. There is no acute hemorrhage. No calvarial fractures are visualized. There are patchy white matter hypodensities likely on a small vessel basis. There is no evidence of pathologic ventricular dilatation. There is no evidence of acute sinusitis IMPRESSION: No acute intracranial findings Electronically signed by: Barron Torres M.D. 08/31/2017 6:40 PM CHEST ONE VIEW PORTABLE FINDINGS: The heart is mildly enlarged. There is no focal pulmonary consolidation. There is no overt failure. There are no pleural effusions.[ IMPRESSION: Mild cardiomegaly. No acute findings. Electronically signed by: Barron Torres M.D. 08/31/2017 7:15 PM Laboratory Results Test 08/31/17 18:00 08/31/17 18:58 08/31/17 21:05 Immature Granulocyte % (Auto) 0.3 % White Blood Count 7.06 K/uL (4.8-10.8) Red Blood Count 5.01 M/uL (4.7-6.1) Hemoglobin 15.7 g/dL (14.0-18.0) Hematocrit 44.5 % (42-52) Mean Corpuscular Volume 88.8 fL (80-100) Mean Corpuscular Hemoglobin 31.3 pg (25-34) Mean Corpuscular Hemoglobin Concent 35.3 g/dl (32-36) Platelet Count 230 K/uL (130-400) Mean Platelet Volume 9.3 fL (7.4-10.4) Neutrophils (%) (Auto) 67.9 % Lymphocytes (%) (Auto) 20.8 % Monocytes (%) (Auto) 8.9 % Eosinophils (%) (Auto) 1.7 % Basophils (%) (Auto) 0.4 % Neutrophils # (Auto) 4.79 K/uL (1.4-6.5) Lymphocytes # (Auto) 1.47 K/uL (1.2-3.4) Monocytes # (Auto) 0.63 K/uL (0.11-0.59) Eosinophils # (Auto) 0.12 K/uL (0-0.5) Basophils # (Auto) 0.03 K/uL (0-0.2) Immature Granulocyte # (Auto) 0.02 K/uL (0.00-0.02) Prothrombin Time 10.4 SECONDS (9.0-12.0) Prothromb Time International Ratio 1.0 (0.9-1.1) Activated Partial Thromboplast Time 26.4 SECONDS (21.0-31.0) Partial Thromboplastin Ratio 1.0 Magnesium Level 2.1 mg/dl (1.8-2.4) Total Bilirubin 0.4 mg/dl (0.2-1) Direct Bilirubin < 0.1 mg/dl (0-0.2) Aspartate Amino Transf (AST/SGOT) 16 U/L (15-37) Alanine Aminotransferase (ALT/SGPT) 25 U/L (12-78) Alkaline Phosphatase 91 U/L (45-117) Troponin I < 0.015 ng/ml (0-0.045) Total Protein 7.0 gm/dl (6.4-8.2) Albumin 3.8 gm/dl (3.4-5.0) Lipase 96 U/L (73-393) Urine Color YELLOW Urine Appearance CLEAR (CLEAR) Urine pH 6.5 (4.5-7.5) Urine Specific [place] 1.019 (1.000-1.030) Urine Protein NEG (NEG) Urine Glucose (UA) NEG (NEG) Urine Ketones NEG (NEG) Urine Occult Blood TRACE (NEG) Urine Nitrite NEG (NEG) Urine Bilirubin NEG (NEG) Urine Urobilinogen NEG (NEG) Urine Leukocyte Esterase NEG (NEG) Urine WBC (Auto) 1-5 /hpf (0-5) Urine RBC (Auto) 0-4 /hpf (0-4) Urine Hyaline Casts (Auto) 0 /lpf (0-5) Urine Epithelial Cells (Auto) 5-10 /lpf (0-5) Urine Bacteria (Auto) NEG (NEG) Laboratory results reviewed by me Medications Administered Medications (Trade) Dose Ordered Sig/Ha Route Start Time Stop Time Status Last Admin Dose Admin Sodium Chloride 1,000 ml @ 999 mls/hr Q1H1M STAT IV 08/31/17 18:18 08/31/17 19:18 DC 08/31/17 18:56 999 MLS/HR ECG Indication: altered mental status Rate (beats per minute): 70 Rhythm: sinus rhythm Findings: no acute ischemic change, other (Normal axis. ) ED Course 1758: The patient was evaluated in room C1B. A complete history and physical exam was performed. 1919: The patient was reported to have begun staring blankly while receiving his chest x-ray. He became responsive again after several minutes. 2029: Upon reexamination, the patient was resting comfortably. I discussed the test results and treatment plan with him. The patient will be evaluated for further management. Medical Decision I reviewed the patient's past medical history, medications, and the nursing notes as described above. The patient's presentation and history were concerning for metabolic, infection , hypoglycemia, electrolyte abnormalities, cardiac sources, intracerebral event , toxicologic, neurologic, as well as other pathologies were entertained. The patient is a 77-year-old gentleman with a past medical history of absence seizure disorder on Lamictal and Zonisamide followed by Dr. Rubalcava, neurology, who presents emergency Department with presumed seizure episode when he was found in a stairwell at work, awake but unresponsive. On arrival the patient is back to baseline and reports that he had a seizure last week and prior to that had not had any episodes since March. He reports he may have gotten his medications mixed up last week but otherwise reports taking them as he is supposed to. During his evaluation in the ED the patient had a repeat absence episode that resolved spontaneously. Labs unremarkable including WBC wnl. BUN/ Cr > 20 suggesting mild dehydration c/w patient's clinically dry exam. CXR negative. CT head negative. Case was d/w Dr. Rubalcava who agrees that if patient is feeling improved and feels OK to go home that could d/c with an increase in his meds, for example increasing his Lamictal from 150 BID to 175 BID. Otherwise , if patient having repeat episodes and not safe for d/c than reasonable to admit for observation and similar medication adjustment. Case d/w Dr. Galdamez, [facility] hospitalist, who will admit the patient for further management. Of note, patient is unsure of his dosages but his pharmacy was contacted and they confirmed his takes Lamictal 150mg BID and Zonisamide 200mg BID. Zonisamide not in stock in hospital and so patient instructed to take his home evening dose, which he had with him. Medication Reconcilliation Current Medication List: was personally reviewed by me Blood Pressure Screening Patient's blood pressure: Elevated blood pressure Blood pressure disposition: Referred to PCP Consults Time Called: 2009 Consulting Physician: Dr. Rubalcava - Neurology Returned Call: 2012 I discussed the patient with Dr. Rubalcava. He notes that the patient does not have epilepsy caught on EEG, but that the patient's symptoms do respond to medication treatments. He feels comfortable with discharging the patient with medication adjustments, or observing the patient based on his preference. Additional Consults: Time Called: 2023 Consulted Physician: Dr. Nabil Parisi Hospitalist Returned Call: [phone] Additional Comments: I discussed the patient with Dr. Nabil Parisi will evaluate the patient for further treatment. Impression Primary Impression: Seizure disorder Scribe Attestation The scribe's documentation has been prepared under my direction and personally reviewed by me in its entirety. I confirm that the note above accurately reflects all work, treatment, procedures, and medical decision making performed by me. Departure Information Dispostion Being Evaluated By Hospitalist Referrals Manjit Ryan M.D. ([facility]) (PCP)
[2017-08-31] MEDS ORDERED: LAMO150T PO ×2 (21:39→21:40)
[2017-08-31] MEDS ORDERED: ZONI100C39 PO ×2 (21:41→21:42)
[2017-08-31] MEDS ORDERED: ACETAMINOPHEN 325 MG TAB PO PRN (21:45)
[2017-08-31] MEDS ORDERED: SODIUM CHLORIDE 0.9% 1000ML 1,000 ML IV SCH (21:45)
[2017-08-31] MEDS ORDERED: ONDANSETRON INJ 2 MG/ML 2 ML VIAL IV PRN (21:45)
[2017-08-31 21:53] LABS: PTT PATIENT 26.4 SECONDS (21.0-31.0)
[2017-08-31] MEDS ORDERED: LAMO100T PO (23:28)
--- NOTE | 2017-08-31 23:53 | History and Physical ---
History & Physical Date & Time of Service: Aug 31, 2017 at 22:00 Chief Complaint: Confusion, Ams Primary Care Physician: Manjit Ryan M.D.(SINA) History of Present Illness Source: patient, clinic records, hospital records This is a 77yo M with a PMH of seizure disorder and anxiety who presents after an unwitnessed seizure earlier today. States that he was at work, he remembers going into the stairwell to hang up his coat. The next thing he remembers is being back in an office with coworkers who were telling him he seemed confused. States that his co-workers report a similar incident occurring this past Thursday. Has been told that during seizure episodes, he stares off into the distance, remains very still and does not respond verbally. Does not remember the events and does not experience a significant post-ictal event following seizure. Follows with Dr. Rubalcava in neurology, who describes episodes as possible partial complex seizures. Have not been able to catch on EEG but the patient's symptoms respond to medical treatment with Lamictal and Zonegran. Patient admits that he may have mixed up medications last week because his pill box was not in order today. States that he feels tired and has not been sleeping well 2/2 anxiety. Denies fever, chills, headache, confusion, palpitations, CP, SOB, abd pain, nausea, vomiting, focal deficits, bowel/ bladder incontinence, or LE swelling. Denies pain of any kinds. Endorses a few episodes of diarrhea earlier this week that have since resolved. Past Medical/Surgical History Medical Problems: (1) Anxiety Status: Chronic (2) Depression Status: Chronic (3) Seizure disorder Status: Chronic Surgical Problems: (1) H/O colonoscopy Permanent Comment: 01/24/2016 benign polyp Status: Chronic (2) H/o mastoid procedure Status: Chronic (3) History of cataract surgery Status: Resolved Family History Cancer Social History Smoking Status: Never Smoker Alcohol Use: none Drug Use: none Marital Status: Housing status: lives alone Occupational Status: employed Immunizations History of Influenza Vaccine: Yes Influenza Vaccine Date: May 24, 2012 History of Tetanus Vaccine?: Unknown History of Pneumococcal: Yes History of Hepatitis B Vaccine: No Allergies Coded Allergies: No Known Allergies (Unverified , 08/31/17) Home Medications Scheduled Alprazolam (Xanax), 1 TAB PO QPM Lamotrigine (Lamictal), 150 MG PO BID Zonisamide (Zonegran), 200 MG PO BID Review of Systems Ten systems reviewed and negative except as noted in the HPI. Physical Exam Vital Signs Date Time Temp Pulse Resp B/P (MAP) Pulse Ox O2 Delivery O2 Flow Rate FiO2 08/31/17 23:06 78 22 98 Room Air 08/31/17 23:01 147/123 08/31/17 22:51 77 24 98 08/31/17 22:36 85 21 97 08/31/17 22:31 77 21 96 08/31/17 22:30 164/105 08/31/17 22:16 80 22 96 08/31/17 22:01 82 23 163/105 96 08/31/17 21:46 91 97 08/31/17 21:31 79 23 170/97 96 08/31/17 21:11 97 20 98 Room Air 08/31/17 21:01 131/112 08/31/17 20:56 90 27 97 08/31/17 20:41 96 21 96 08/31/17 20:27 105 08/31/17 20:26 95 21 97 08/31/17 20:20 163 08/31/17 20:11 114 24 99 08/31/17 20:06 116 31 99 Room Air 08/31/17 20:00 181/108 08/31/17 19:51 120 24 97 08/31/17 19:36 116 21 97 08/31/17 19:31 169/108 08/31/17 19:21 97 22 97 08/31/17 19:06 77 21 100 08/31/17 19:01 177/96 08/31/17 19:00 62 20 99 Room Air 08/31/17 18:58 182/95 08/31/17 18:06 76 08/31/17 18:04 98 Room Air 08/31/17 18:04 36.5 73 18 169/91 98 Room Air General Appearance: WD/WN, no apparent distress Head: normocephalic, atraumatic Eyes: normal inspection, PERRL, sclerae normal ENT: normal ENT inspection, hearing grossly normal, pharynx normal (dry mucous membranes ) Neck: supple, thyroid normal, trachea midline Respiratory/Chest: chest non-tender, lungs clear, normal breath sounds, no respiratory distress, no accessory muscle use Cardiovascular: regular rate, rhythm, no murmur, normal peripheral pulses Abdomen/GI: non tender, soft, no organomegaly Back: normal inspection Extremities/Musculoskelatal: normal inspection, no calf tenderness, no pedal edema Neurologic/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 ), alert, normal mood/affect, normal reflexes, oriented x 3 Diagnostics Laboratory Results Results Past 24 Hours Test 08/31/17 18:00 08/31/17 18:58 08/31/17 21:05 Range/Units White Blood Count 7.06 4.8-10.8 K/uL Red Blood Count 5.01 4.7-6.1 M/uL Hemoglobin 15.7 14.0-18.0 g/dL Hematocrit 44.5 42-52 % Mean Corpuscular Volume 88.8 80-100 fL Mean Corpuscular Hemoglobin 31.3 25-34 pg Mean Corpuscular Hemoglobin Concent 35.3 32-36 g/dl Platelet Count 230 130-400 K/uL Mean Platelet Volume 9.3 7.4-10.4 fL Neutrophils (%) (Auto) 67.9 % Lymphocytes (%) (Auto) 20.8 % Monocytes (%) (Auto) 8.9 % Eosinophils (%) (Auto) 1.7 % Basophils (%) (Auto) 0.4 % Neutrophils # (Auto) 4.79 1.4-6.5 K/uL Lymphocytes # (Auto) 1.47 1.2-3.4 K/uL Monocytes # (Auto) 0.63 0.11-0.59 K/uL Eosinophils # (Auto) 0.12 0-0.5 K/uL Basophils # (Auto) 0.03 0-0.2 K/uL RDW Standard Deviation 42.4 36.4-46.3 fL RDW Coefficient of Variation 13.1 11.5-14.5 % Immature Granulocyte % (Auto) 0.3 % Immature Granulocyte # (Auto) 0.02 0.00-0.02 K/uL Prothrombin Time 10.4 9.0-12.0 SECONDS Prothromb Time International Ratio 1.0 0.9-1.1 Activated Partial Thromboplast Time 26.4 21.0-31.0 SECONDS Partial Thromboplastin Ratio 1.0 Sodium Level 139 136-145 mmol/L Potassium Level 4.1 3.5-5.1 mmol/L Chloride Level 107 98-107 mmol/L Carbon Dioxide Level 24 21-32 mmol/L Anion Gap 8.0 3-11 mmol/L Blood Urea Nitrogen 23 7-18 mg/dl Creatinine 1.03 0.60-1.40 mg/dl Est Creatinine Clear Calc Drug Dose 63.0 ml/min Estimated GFR () 81.4 Estimated GFR (Non- 70.2 BUN/Creatinine Ratio 22.6 10-20 Random Glucose 104 70-99 mg/dl Calcium Level 8.9 8.5-10.1 mg/dl Magnesium Level 2.1 1.8-2.4 mg/dl Total Bilirubin 0.4 0.2-1 mg/dl Direct Bilirubin < 0.1 0-0.2 mg/dl Aspartate Amino Transf (AST/SGOT) 16 15-37 U/L Alanine Aminotransferase (ALT/SGPT) 25 12-78 U/L Alkaline Phosphatase 91 45-117 U/L Troponin I < 0.015 0-0.045 ng/ml Total Protein 7.0 6.4-8.2 gm/dl Albumin 3.8 3.4-5.0 gm/dl Lipase 96 73-393 U/L Urine Color YELLOW Urine Appearance CLEAR CLEAR Urine pH 6.5 4.5-7.5 Urine Specific [place] 1.019 1.000-1.030 Urine Protein NEG NEG Urine Glucose (UA) NEG NEG Urine Ketones NEG NEG Urine Occult Blood TRACE NEG Urine Nitrite NEG NEG Urine Bilirubin NEG NEG Urine Urobilinogen NEG NEG Urine Leukocyte Esterase NEG NEG Urine WBC (Auto) 1-5 0-5 /hpf Urine RBC (Auto) 0-4 0-4 /hpf Urine Hyaline Casts (Auto) 0 0-5 /lpf Urine Epithelial Cells (Auto) 5-10 0-5 /lpf Urine Bacteria (Auto) NEG NEG Diagnostic Radiology CT head: IMPRESSION: No acute intracranial findings CXR: IMPRESSION: Mild cardiomegaly. No acute findings. EKG Sinus rhythm with Premature atrial complexes at 70 bpm. Impression Assessment and Plan This is a 77yo M with a PMH of seizure disorder and anxiety who presents after an unwitnessed seizure earlier today. 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 Discharge planning ordered. Patient seen in collaboration with Dr. Ferrer. Please see addendum. 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 Agree with the assessment and plan Dr Ignacio Ferrer Level of Care Telemetry Resuscitation Status FULL RESUSCITATION VTE Prophylaxis VTE Risk Assessment Done? Y/N: Yes Risk Level: Moderate Given or contraindicated: Unfractionated heparin SQ
[2017-09-01] VITALS (10 sets, daily range): BP systolic 111–170; BP diastolic 47–88; PULSE 73–150; TEMP 36.6–37.4; O2SAT 82–98; Ht 177.8 cm; Wt 79.0 kg
[2017-09-01 03:40] LABS: CALCIUM 8.7 mg/dl (8.5-10.1); CREATININE 1.22 mg/dl (0.60-1.40); HEMATOCRIT 47.8 % (42-52); HEMOGLOBIN 16.7 g/dL (14.0-18.0); MEAN CELL VOLUME 91.6 fL (80-100); MEAN CORPUSCULAR HGB CONC 34.9 g/dl (32-36); MEAN PLATELET VOLUME 9.4 fL (7.4-10.4); PLATELET COUNT 267 K/uL (130-400); POTASSIUM 3.6 mmol/L (3.5-5.1); RED CELL DISTRIBUTION WIDTH SD 43.6 fL (36.4-46.3)
[2017-09-01] MEDS ORDERED: LORAZEPAM INJ 1 MG in SYRINGE 0.5 ML IV PRN (03:45)
[2017-09-01] MEDS: HEPARIN SOD 5000 UNIT/0.5 ML CARP SQ SCH ×3 (06:00→21:16)
--- NOTE | 2017-09-01 10:32 | Neurology Consultation ---
Neurology Consultation Date of Consultation: Sep 01, 2017. Attending Physician: Jaydon Cisneros MD Primary Care Physician: Manjit Ryan M.D.(SINA) Reason for Consultation: Seizure disorder History of Present Illness Source: patient, clinic records, hospital records The patient is a 77-year-old male with a history of suspected seizure disorder who has been following with me in clinic for the past few years. His seizures have been characterized by episodes of lapses in awareness and unresponsiveness. He is felt to possibly have complex partial seizures. Previous EEGs have been normal, however. This patient also has a history of anxiety. He does report to some noncompliance with his anticonvulsant regimen recently. He is prescribed both Lamictal and Zonegran. I had attempted to taper off his on a gram last year although he complained of increasing anxiety and this medication was restarted. The patient presented to the hospital for further evaluation of confusion potentially concerning for breakthrough partial seizures. He apparently had walked into a stairwell while at work and was found to be behaving in a confused fashion. He may have had a similar episode of confusion occur one week ago. There is an apparent episode witnessed in the emergency department here as well characterized by staring and unresponsiveness. The patient does not have any recollection of the events. He denies headache, fever, recent illness, or significant anxiety or other stressors at this time. A CT of the head was unremarkable. No signs of infection or major metabolic abnormality with initial lab work. He may be slightly dehydrated at the time of presentation, however. The patient has been admitted under observation status. Past Medical/Surgical History Medical Problems: (1) PVC (premature ventricular contraction) Status: Acute (2) Seizure disorder Status: Chronic Family History Noncontributory Social History Smoking Status: Unknown if ever smoked Alcohol Use: none Drug Use: none Marital Status: Housing Status: lives with family Occupation Status: employed Allergies Coded Allergies: No Known Allergies (Unverified , 08/31/17) Current Inpatient Medications Current Inpatient Medications Medications (Trade) Dose Ordered Sig/Ha Route Start Time Stop Time Status Last Admin Dose Admin Acetaminophen (Tylenol Tab) 650 mg Q4H PRN PO 08/31/17 21:45 09/30/17 21:44 09/01/17 07:48 650 MG Ondansetron HCl (Zofran Inj) 4 mg Q6H PRN IV 08/31/17 21:45 09/30/17 21:44 Heparin Sodium (Porcine) (Heparin Sq 5000 Unit/0.5ml) 5,000 unit Q8H SQ 09/01/17 06:00 10/01/17 05:59 Alprazolam (Xanax Tab) 0.5 mg QPM PO 09/01/17 21:00 10/01/17 20:59 Lamotrigine (Lamictal Tab) 150 mg BID PO 09/01/17 09:00 10/01/17 08:59 09/01/17 07:50 150 MG Lorazepam 1 mg/ Syringe 1 ml @ 0.5 mls/min NOW PRN IV 09/01/17 03:45 Zonisamide (Zonegran) 200 mg BID PO 09/01/17 10:00 10/01/17 09:59 Review of Systems Constitutional: No fever or chills Eyes: No vision loss or diplopia ENT: No hearing loss or vertigo Cardiovascular: No chest pain or palpitations Respiratory: No coughing wheezing or shortness of breath Neurological: As per history of present illness. No headache, weakness, sensory loss, or ataxia Psychiatric: Patient denies significant feelings of depression or anxiety at this time A full 10 point review of systems was obtained from this patient with pertinent positives and negatives described a history of present illness and otherwise listed above. All remaining systems were reviewed and are negative. Physical Exam Vital Signs (Past 24 Hrs): Date Time Temp Pulse Resp B/P (MAP) Pulse Ox O2 Delivery O2 Flow Rate FiO2 09/01/17 08:12 96 Room Air 09/01/17 08:02 37.4 120 18 127/77 (94) 96 Room Air 09/01/17 08:00 Nasal Cannula 2.0 09/01/17 04:00 Room Air 09/01/17 03:32 146 129/72 (91) 95 Room Air 09/01/17 03:21 123 111/47 (68) 96 Oxymask 6.0 09/01/17 03:00 150 138/83 (101) 82 Room Air 09/01/17 00:45 36.9 74 18 170/88 98 Room Air 09/01/17 00:16 75 21 96 09/01/17 00:01 80 23 176/101 96 08/31/17 23:46 56 22 97 08/31/17 23:41 70 22 96 08/31/17 23:30 173/90 08/31/17 23:26 78 26 96 08/31/17 23:06 78 22 98 Room Air 08/31/17 23:01 147/123 08/31/17 22:51 77 24 98 08/31/17 22:36 85 21 97 08/31/17 22:31 77 21 96 08/31/17 22:30 164/105 08/31/17 22:16 80 22 96 08/31/17 22:01 82 23 163/105 96 08/31/17 21:46 91 97 08/31/17 21:31 79 23 170/97 96 08/31/17 21:11 97 20 98 Room Air 08/31/17 21:01 131/112 08/31/17 20:56 90 27 97 08/31/17 20:41 96 21 96 08/31/17 20:27 105 08/31/17 20:26 95 21 97 08/31/17 20:20 163 08/31/17 20:11 114 24 99 08/31/17 20:06 116 31 99 Room Air 08/31/17 20:00 181/108 08/31/17 19:51 120 24 97 08/31/17 19:36 116 21 97 08/31/17 19:31 169/108 08/31/17 19:21 97 22 97 08/31/17 19:06 77 21 100 08/31/17 19:01 177/96 08/31/17 19:00 62 20 99 Room Air 08/31/17 18:58 182/95 08/31/17 18:06 76 08/31/17 18:04 98 Room Air 08/31/17 18:04 36.5 73 18 169/91 98 Room Air The patient is a well-developed elderly male. He is lying comfortably in bed, no acute distress. The patient is alert and fully oriented. Recent and remote memory intact. Attention and concentration normal. Patient exhibits a normal spontaneous speech pattern as well as an age-appropriate fund of knowledge. Visual brooks full to confrontation. Visual acuity normal. Pupils equal round reactive to light and accommodation. Eye movements normal. Facial sensation intact bilaterally. There is no facial droop or weakness. Hearing intact to finger rub bilaterally. Palate elevates to midline. Shoulder shrug strength intact bilaterally. Tongue protrudes to midline. Sensation intact to light touch , temperature, vibration, and proprioception for all 4 limbs. Deep tendon reflexes intact and symmetrical for the arms and legs. There is no dysdiadochokinesia or dysmetria with finger to nose or heel to hess bilaterally. Ophthalmoscopic examination reveals normal-appearing optic disks and posterior segments. No papilledema or hemorrhages. Carotid pulses normal bilaterally, no bruits to auscultation. Gait not tested due to safety concerns, patient on seizure precautions. Muscle strength normal for the arms and legs bilaterally, proximally and distally. Muscle tone normal throughout. No atrophy. No abnormal movements observed. Laboratory Results Past 24 Hours: 09/01/17 03:13 09/01/17 03:13 Test 08/31/17 18:00 08/31/17 18:58 08/31/17 21:05 09/01/17 03:13 Immature Granulocyte % (Auto) 0.3 % White Blood Count 7.06 K/uL (4.8-10.8) Red Blood Count 5.01 M/uL (4.7-6.1) 5.22 M/uL (4.7-6.1) Hemoglobin 15.7 g/dL (14.0-18.0) Hematocrit 44.5 % (42-52) Mean Corpuscular Volume 88.8 fL (80-100) 91.6 fL (80-100) Mean Corpuscular Hemoglobin 31.3 pg (25-34) 32.0 pg (25-34) Mean Corpuscular Hemoglobin Concent 35.3 g/dl (32-36) 34.9 g/dl (32-36) Platelet Count 230 K/uL (130-400) Mean Platelet Volume 9.3 fL (7.4-10.4) 9.4 fL (7.4-10.4) Neutrophils (%) (Auto) 67.9 % Lymphocytes (%) (Auto) 20.8 % Monocytes (%) (Auto) 8.9 % Eosinophils (%) (Auto) 1.7 % Basophils (%) (Auto) 0.4 % Neutrophils # (Auto) 4.79 K/uL (1.4-6.5) Lymphocytes # (Auto) 1.47 K/uL (1.2-3.4) Monocytes # (Auto) 0.63 K/uL (0.11-0.59) Eosinophils # (Auto) 0.12 K/uL (0-0.5) Basophils # (Auto) 0.03 K/uL (0-0.2) Immature Granulocyte # (Auto) 0.02 K/uL (0.00-0.02) Prothrombin Time 10.4 SECONDS (9.0-12.0) Prothromb Time International Ratio 1.0 (0.9-1.1) Activated Partial Thromboplast Time 26.4 SECONDS (21.0-31.0) Partial Thromboplastin Ratio 1.0 Magnesium Level 2.1 mg/dl (1.8-2.4) Total Bilirubin 0.4 mg/dl (0.2-1) Direct Bilirubin < 0.1 mg/dl (0-0.2) Aspartate Amino Transf (AST/SGOT) 16 U/L (15-37) Alanine Aminotransferase (ALT/SGPT) 25 U/L (12-78) Alkaline Phosphatase 91 U/L (45-117) Troponin I < 0.015 ng/ml (0-0.045) Total Protein 7.0 gm/dl (6.4-8.2) Albumin 3.8 gm/dl (3.4-5.0) Lipase 96 U/L (73-393) Urine Color YELLOW Urine Appearance CLEAR (CLEAR) Urine pH 6.5 (4.5-7.5) Urine Specific [place] 1.019 (1.000-1.030) Urine Protein NEG (NEG) Urine Glucose (UA) NEG (NEG) Urine Ketones NEG (NEG) Urine Occult Blood TRACE (NEG) Urine Nitrite NEG (NEG) Urine Bilirubin NEG (NEG) Urine Urobilinogen NEG (NEG) Urine Leukocyte Esterase NEG (NEG) Urine WBC (Auto) 1-5 /hpf (0-5) Urine RBC (Auto) 0-4 /hpf (0-4) Urine Hyaline Casts (Auto) 0 /lpf (0-5) Urine Epithelial Cells (Auto) 5-10 /lpf (0-5) Urine Bacteria (Auto) NEG (NEG) RDW Standard Deviation 43.6 fL (36.4-46.3) RDW Coefficient of Variation 13.0 % (11.5-14.5) Anion Gap 20.0 mmol/L (3-11) Est Creatinine Clear Calc Drug Dose 53.2 ml/min Estimated GFR () 66.3 Estimated GFR (Non- 57.2 BUN/Creatinine Ratio 14.1 (10-20) Calcium Level 8.7 mg/dl (8.5-10.1) Impression Suspected complex partial seizures. Previous EEGs have been normal, however. Psychogenic spells not excluded. Recent episodes potentially triggered by stress, emotional factors, or noncompliance with his anticonvulsant regimen. Plan EEG completed this morning. Review when available. Increase Lamictal to 200 mg twice a day. Continue Zonegran 200 mg twice a day. Follow-up with me in clinic in 2-3 weeks.
[2017-09-01] MEDS: ZONISAMIDE 100 MG PO SCH ×2 (10:59→21:11)
--- NOTE | 2017-09-01 14:17 | EEG Procedure Note ---
EEG Procedure Note Date of Service Sep 01, 2017. Start / End Times Start Time: 10:24 AM End Time: 10:44 AM Referring Physician Igor Rubalcava History This is a 77-year-old male with concerns for seizure-like activity. EEG for further evaluation of possible seizure etiology. Home Medication List Scheduled Alprazolam (Xanax), 1 TAB PO QPM Lamotrigine (Lamictal), 150 MG PO BID Zonisamide (Zonegran), 200 MG PO BID Inpatient Medication List Current Inpatient Medications Medications (Trade) Dose Ordered Sig/Ha Route Start Time Stop Time Status Last Admin Dose Admin Acetaminophen (Tylenol Tab) 650 mg Q4H PRN PO 08/31/17 21:45 09/30/17 21:44 09/01/17 07:48 650 MG Ondansetron HCl (Zofran Inj) 4 mg Q6H PRN IV 08/31/17 21:45 09/30/17 21:44 Heparin Sodium (Porcine) (Heparin Sq 5000 Unit/0.5ml) 5,000 unit Q8H SQ 09/01/17 06:00 10/01/17 05:59 09/01/17 13:27 5,000 UNIT Alprazolam (Xanax Tab) 0.5 mg QPM PO 09/01/17 21:00 10/01/17 20:59 Lamotrigine (Lamictal Tab) 150 mg BID PO 09/01/17 09:00 10/01/17 08:59 09/01/17 07:50 150 MG Lorazepam 1 mg/ Syringe 1 ml @ 0.5 mls/min NOW PRN IV 09/01/17 03:45 Zonisamide (Zonegran) 200 mg BID PO 09/01/17 10:00 10/01/17 09:59 09/01/17 10:59 200 MG Description This is a 21 electrode EEG with a single channel dedicated to limited EKG. The electrodes were placed in accordance with the International 10-20 system. At the start of the recording the patient was in an awake state. Background was well organized and composed of symmetric mixed alpha and beta frequencies. There was a symmetric well-formed moderate amplitude 9-10 Hz posterior dominant rhythm that was reactive to eye opening and closure. Hyperventilation was not done. Intermittent photic stimulation at various frequencies produced no abnormalities. Drowsiness was indicated by loss of muscle artifact and slowing of the background rhythm. There was no sleep transients. Interpretation This is a normal awake and drowsy routine EEG. There was no electrographic seizures or epileptiform discharges. Clinical Correlation A normal EEG does not rule out epilepsy if there is a strong clinical suspicion.
--- NOTE | 2017-09-01 16:41 | Progress Note ---
Internal Med Progress Note Date of Service: Sep 01, 2017. Provider Documentation: SUBJECTIVE: resting comfortably afebrile no nausea no sob no pain no complaints OBJECTIVE: Vital Signs-as noted below Exam: General-alert and oriented. Not in distress ENT-Normal hearing Neck-no neck masses Lungs-cta b/l no wheezing or crackles Heart-S1 and S2 heard regular rate and rhythm, no murmurs Abdomen-soft bowel sounds present no tenderness no distension Extremities-no edema no erythema Neuro-alert and awake moves extremities Lab data as noted below. ASSESSMENT & PLAN: This is a 77yo M with a PMH of seizure disorder and anxiety who presents after an unwitnessed seizure earlier today. Absence seizures: Describes episodes last Thursday, today at work and while in radiology compliance? Lamictal and Zonegran levels pending appreciate neurology inputs increased Lamictal to 200mg bid Anxiety, insomnia: on Xanax HS dose DVT Ppx: Heparin SQ Code status: FULL PCP: [facility] Dispo: possible d/c in am iof stable Vital Signs: Date Time Temp Pulse Resp B/P (MAP) Pulse Ox O2 Delivery O2 Flow Rate FiO2 09/01/17 14:47 36.6 73 18 136/75 (95) 96 Room Air 09/01/17 12:05 97 Room Air 09/01/17 12:00 Nasal Cannula 2.0 09/01/17 11:55 36.8 85 150/82 (104) 97 Room Air 09/01/17 08:12 96 Room Air 09/01/17 08:02 37.4 120 18 127/77 (94) 96 Room Air 09/01/17 08:00 Nasal Cannula 2.0 09/01/17 04:00 Room Air 09/01/17 03:32 146 129/72 (91) 95 Room Air 09/01/17 03:21 123 111/47 (68) 96 Oxymask 6.0 09/01/17 03:00 150 138/83 (101) 82 Room Air 09/01/17 00:45 36.9 74 18 170/88 98 Room Air 09/01/17 00:16 75 21 96 09/01/17 00:01 80 23 176/101 96 08/31/17 23:46 56 22 97 08/31/17 23:41 70 22 96 08/31/17 23:30 173/90 08/31/17 23:26 78 26 96 08/31/17 23:06 78 22 98 Room Air 08/31/17 23:01 147/123 08/31/17 22:51 77 24 98 08/31/17 22:36 85 21 97 08/31/17 22:31 77 21 96 08/31/17 22:30 164/105 08/31/17 22:16 80 22 96 08/31/17 22:01 82 23 163/105 96 08/31/17 21:46 91 97 08/31/17 21:31 79 23 170/97 96 08/31/17 21:11 97 20 98 Room Air 08/31/17 21:01 131/112 08/31/17 20:56 90 27 97 08/31/17 20:41 96 21 96 08/31/17 20:27 105 08/31/17 20:26 95 21 97 08/31/17 20:20 163 08/31/17 20:11 114 24 99 08/31/17 20:06 116 31 99 Room Air 08/31/17 20:00 181/108 08/31/17 19:51 120 24 97 08/31/17 19:36 116 21 97 08/31/17 19:31 169/108 08/31/17 19:21 97 22 97 08/31/17 19:06 77 21 100 08/31/17 19:01 177/96 08/31/17 19:00 62 20 99 Room Air 08/31/17 18:58 182/95 08/31/17 18:06 76 08/31/17 18:04 98 Room Air 08/31/17 18:04 36.5 73 18 169/91 98 Room Air Lab Results: Results Past 24 Hours Test 08/31/17 18:00 08/31/17 18:58 08/31/17 21:05 09/01/17 03:13 Range/Units White Blood Count 7.06 12.90 4.8-10.8 K/uL Red Blood Count 5.01 5.22 4.7-6.1 M/uL Hemoglobin 15.7 16.7 14.0-18.0 g/dL Hematocrit 44.5 47.8 42-52 % Mean Corpuscular Volume 88.8 91.6 80-100 fL Mean Corpuscular Hemoglobin 31.3 32.0 25-34 pg Mean Corpuscular Hemoglobin Concent 35.3 34.9 32-36 g/dl Platelet Count 230 267 130-400 K/uL Mean Platelet Volume 9.3 9.4 7.4-10.4 fL Neutrophils (%) (Auto) 67.9 % Lymphocytes (%) (Auto) 20.8 % Monocytes (%) (Auto) 8.9 % Eosinophils (%) (Auto) 1.7 % Basophils (%) (Auto) 0.4 % Neutrophils # (Auto) 4.79 1.4-6.5 K/uL Lymphocytes # (Auto) 1.47 1.2-3.4 K/uL Monocytes # (Auto) 0.63 0.11-0.59 K/uL Eosinophils # (Auto) 0.12 0-0.5 K/uL Basophils # (Auto) 0.03 0-0.2 K/uL RDW Standard Deviation 42.4 43.6 36.4-46.3 fL RDW Coefficient of Variation 13.1 13.0 11.5-14.5 % Immature Granulocyte % (Auto) 0.3 % Immature Granulocyte # (Auto) 0.02 0.00-0.02 K/uL Prothrombin Time 10.4 9.0-12.0 SECONDS Prothromb Time International Ratio 1.0 0.9-1.1 Activated Partial Thromboplast Time 26.4 21.0-31.0 SECONDS Partial Thromboplastin Ratio 1.0 Sodium Level 139 141 136-145 mmol/L Potassium Level 4.1 3.6 3.5-5.1 mmol/L Chloride Level 107 109 98-107 mmol/L Carbon Dioxide Level 24 12 21-32 mmol/L Anion Gap 8.0 20.0 3-11 mmol/L Blood Urea Nitrogen 23 17 7-18 mg/dl Creatinine 1.03 1.22 0.60-1.40 mg/dl Est Creatinine Clear Calc Drug Dose 63.0 53.2 ml/min Estimated GFR () 81.4 66.3 Estimated GFR (Non- 70.2 57.2 BUN/Creatinine Ratio 22.6 14.1 10-20 Random Glucose 104 127 70-99 mg/dl Calcium Level 8.9 8.7 8.5-10.1 mg/dl Magnesium Level 2.1 1.8-2.4 mg/dl Total Bilirubin 0.4 0.2-1 mg/dl Direct Bilirubin < 0.1 0-0.2 mg/dl Aspartate Amino Transf (AST/SGOT) 16 15-37 U/L Alanine Aminotransferase (ALT/SGPT) 25 12-78 U/L Alkaline Phosphatase 91 45-117 U/L Troponin I < 0.015 0-0.045 ng/ml Total Protein 7.0 6.4-8.2 gm/dl Albumin 3.8 3.4-5.0 gm/dl Lipase 96 73-393 U/L Urine Color YELLOW Urine Appearance CLEAR CLEAR Urine pH 6.5 4.5-7.5 Urine Specific [place] 1.019 1.000-1.030 Urine Protein NEG NEG Urine Glucose (UA) NEG NEG Urine Ketones NEG NEG Urine Occult Blood TRACE NEG Urine Nitrite NEG NEG Urine Bilirubin NEG NEG Urine Urobilinogen NEG NEG Urine Leukocyte Esterase NEG NEG Urine WBC (Auto) 1-5 0-5 /hpf Urine RBC (Auto) 0-4 0-4 /hpf Urine Hyaline Casts (Auto) 0 0-5 /lpf Urine Epithelial Cells (Auto) 5-10 0-5 /lpf Urine Bacteria (Auto) NEG NEG
[2017-09-01] MEDS ORDERED: ALPRAZOLAM 0.5 MG TAB PO SCH (21:00)
[2017-09-02 00:33] VITALS: BP 147/81; PULSE 74; TEMP 36.6; O2SAT 97
[2017-09-02] MEDS: HEPARIN SOD 5000 UNIT/0.5 ML CARP SQ SCH ×3 (05:51→13:13)
[2017-09-02 05:54] VITALS: BP 150/78; PULSE 82; TEMP 36.5; O2SAT 96
[2017-09-02 07:26] VITALS: BP 131/84; PULSE 79; TEMP 36.7; O2SAT 96
[2017-09-02] MEDS: ZONISAMIDE 100 MG PO SCH (07:46)
--- NOTE | 2017-09-02 11:04 | Neurology Progress Notes ---
Neurology Progress Note Date of Service Sep 02, 2017. Subjective Follow-up for seizure disorder The patient denies headache, weakness, confusion, or other neurological complaints at this time. He has not had any further seizures or seizure-like episodes since an episode documented by nursing at around 3 AM on September 01. The episode lasted for about 30 seconds and was characterized by unresponsiveness followed by some confusion and low-grade headache. Yesterday's EEG was unremarkable. No evidence of epileptiform abnormalities or focal slowing. Patient's Lamictal dosage was increased from 150 mg twice daily to 200 mg twice daily. Objective Date Time Temp Pulse Resp B/P (MAP) Pulse Ox O2 Delivery O2 Flow Rate FiO2 09/02/17 07:45 Room Air 09/02/17 07:26 36.7 79 16 131/84 (100) 96 09/02/17 05:54 36.5 82 20 150/78 (102) 96 Room Air 09/02/17 04:00 Room Air 09/02/17 00:33 36.6 74 20 147/81 (103) 97 Room Air 09/02/17 00:00 Room Air 09/01/17 20:00 Room Air 09/01/17 19:18 36.7 85 20 138/75 (96) 96 Room Air 09/01/17 16:00 Nasal Cannula 2.0 09/01/17 14:47 36.6 73 18 136/75 (95) 96 Room Air 09/01/17 12:05 97 Room Air 09/01/17 12:00 Nasal Cannula 2.0 09/01/17 11:55 36.8 85 150/82 (104) 97 Room Air Exam: The patient is alert and fully oriented. Attention and concentration are normal. Patient exhibits a fluent speech pattern and normal vocabulary. Visual brooks full to confrontation. Visual acuity normal. Pupils equal round reactive to light and accommodation. Eye movements normal. There is no nystagmus. There is no facial weakness or facial droop. Hearing intact. Tongue and palate midline. There is no pronator drift, ataxia, or weakness of the arms or legs. Gait and station are normal. Current Inpatient Medications Medications (Trade) Dose Ordered Sig/Ha Route Start Time Stop Time Status Last Admin Dose Admin Acetaminophen (Tylenol Tab) 650 mg Q4H PRN PO 08/31/17 21:45 09/30/17 21:44 09/01/17 07:48 650 MG Ondansetron HCl (Zofran Inj) 4 mg Q6H PRN IV 08/31/17 21:45 09/30/17 21:44 Heparin Sodium (Porcine) (Heparin Sq 5000 Unit/0.5ml) 5,000 unit Q8H SQ 09/01/17 06:00 10/01/17 05:59 09/01/17 21:16 5,000 UNIT Alprazolam (Xanax Tab) 0.5 mg QPM PO 09/01/17 21:00 10/01/17 20:59 09/01/17 21:11 0.5 MG Lorazepam 1 mg/ Syringe 1 ml @ 0.5 mls/min NOW PRN IV 09/01/17 03:45 Zonisamide (Zonegran) 200 mg BID PO 09/01/17 10:00 10/01/17 09:59 09/02/17 07:46 200 MG Lamotrigine (Lamictal Tab) 200 mg BID PO 09/01/17 21:00 10/01/17 20:59 09/02/17 07:46 200 MG Impression Suspected complex partial seizures. However, yesterday's EEG was completely normal. Further, he has had at least 2 normal previous EEGs as well. I'm unable to exclude nonepileptic seizures in this patient. Plan Continue with Lamictal 200 mg twice daily. Continue with Zonegran 200 mg twice daily. Follow-up in outpatient neurology clinic. I discussed a potential outpatient referral to an epilepsy specialist for a second opinion. The patient is agreeable to this referral which my office can arrange. Please contact me if I may be of further assistance.
[2017-09-02 11:45] VITALS: BP 121/71; PULSE 74; TEMP 36.5; O2SAT 98
[2017-09-02] MEDS ORDERED: LAMO200T PO (13:01)
--- NOTE | 2017-09-02 13:03 | Discharge Instructions ---
Discharge Instructions Date of Service Sep 02, 2017. Admission Reason for Admission: Seizure, Absence Discharge Discharge Diagnosis / Problem: absence seizures Discharge Goals Goal(s): Decrease discomfort, Improve function Activity Recommendations Activity Limitations: resume your previous activity . Instructions / Follow-Up Instructions / Follow-Up FOLLOWUP WITH FAMILY DOCTOR ON Sep AT 11:05AM FOLLOWUP WITH NEUROLOGY IN 1-2 WEEKS. REFERRAL TO EPILEPSY SPECIALIST PER Current Hospital Diet Patient's current hospital diet: Regular Diet Discharge Diet Recommended Diet: Regular Diet Pending Studies Studies pending at discharge: no Medical Emergencies . Who to Call and When: Medical Emergencies: If at any time you feel your situation is an emergency, please call 911 immediately. . Non-Emergent Contact Non-Emergency issues call your: Primary Care Provider . . "Provider Documentation" section prepared by Jaydon Cisneros. . VTE Core Measure Inpt VTE Proph given/why not?: Unfractionated heparin SQ
[2017-09-02 13:27] VITALS: BP 121/71; PULSE 74; TEMP 36.5; O2SAT 98
--- NOTE | 2017-09-02 18:37 | Progress Note ---
Internal Med Progress Note Date of Service: Sep 02, 2017. Provider Documentation: SUBJECTIVE: resting comfortably seems comfortable ok to go home denies any pain afebrile alert and I oriented OBJECTIVE: Vital Signs-as noted below Exam: General-alert and oriented. Not in distress ENT-Normal hearing Neck-no neck masses Lungs-cta b/l no wheezing or crackles Heart-S1 and S2 heard regular rate and rhythm, no murmurs Abdomen-soft bowel sounds present no tenderness no distension Extremities-no edema no erythema Neuro-alert and awake moves extremities Lab data as noted below. ASSESSMENT & PLAN: This is a 77yo M with a PMH of seizure disorder and anxiety who presents after an unwitnessed seizure earlier today. Absence seizures: Describes episodes last Thursday, today at work and while in radiology compliance? Lamictal and Zonegran levels pending appreciate neurology inputs increased Lamictal to 200mg bid stable f/u with neurology plan for referral to epilepsy specialist referral as per neurology Anxiety, insomnia: on Xanax HS dose discharged home Vital Signs: Date Time Temp Pulse Resp B/P (MAP) Pulse Ox O2 Delivery O2 Flow Rate FiO2 09/02/17 13:27 36.5 74 16 98 Room Air 09/02/17 11:55 Room Air 09/02/17 11:45 36.5 74 16 121/71 (88) 98 09/02/17 07:45 Room Air 09/02/17 07:26 36.7 79 16 131/84 (100) 96 09/02/17 05:54 36.5 82 20 150/78 (102) 96 Room Air 09/02/17 04:00 Room Air 09/02/17 00:33 36.6 74 20 147/81 (103) 97 Room Air 09/02/17 00:00 Room Air 09/01/17 20:00 Room Air 09/01/17 19:18 36.7 85 20 138/75 (96) 96 Room Air
--- NOTE | 2017-09-02 18:42 | Discharge Summary ---
Discharge Summary Date of Service Sep 02, 2017. Discharge Summary Admission Date: Sep 01, 2017 at 13:04 Discharge Date: Sep 02, 2017 Discharge Disposition: Home Principal Diagnosis: ABSENCE SEIZURES Secondary Diagnoses/Problems: (1) Anxiety Status: Chronic (2) Depression Status: Chronic (3) Seizure disorder Status: Chronic Procedures: CT HEAD: No acute intracranial findings CXR: Mild cardiomegaly. No acute findings. EEG: This is a normal awake and drowsy routine EEG. There was no electrographic seizures or epileptiform discharges. Consultations: NEUROLOGY Medication Reconciliation New Medications: Lamotrigine (Lamictal) 200 Mg Tab 1 TAB PO BID for 30 Days, #60 TAB 2 Refills Continued Medications: Alprazolam (Xanax) 0.5 Mg Tab 1 TAB PO QPM, TAB Zonisamide (Zonegran) 100 Mg Cap 200 MG PO BID, CAP Discontinued Medications: Lamotrigine (Lamictal) 100 Mg Tab 150 MG PO BID for 30 Days, #90 TAB 1 Refill Admission Information HPI (per Admitting provider): This is a 77yo M with a PMH of seizure disorder and anxiety who presents after an unwitnessed seizure earlier today. States that he was at work, he remembers going into the stairwell to hang up his coat. The next thing he remembers is being back in an office with coworkers who were telling him he seemed confused. States that his co-workers report a similar incident occurring this past Thursday. Has been told that during seizure episodes, he stares off into the distance, remains very still and does not respond verbally. Does not remember the events and does not experience a significant post-ictal event following seizure. Follows with Dr. Rubalcava in neurology, who describes episodes as possible partial complex seizures. Have not been able to catch on EEG but the patient's symptoms respond to medical treatment with Lamictal and Zonegran. Patient admits that he may have mixed up medications last week because his pill box was not in order today. States that he feels tired and has not been sleeping well 2/2 anxiety. Denies fever, chills, headache, confusion, palpitations, CP, SOB, abd pain, nausea, vomiting, focal deficits, bowel/ bladder incontinence, or LE swelling. Denies pain of any kinds. Endorses a few episodes of diarrhea earlier this week that have since resolved. Physical Exam (per Admitting): General Appearance: WD/WN, no apparent distress Head: normocephalic, atraumatic Eyes: normal inspection, PERRL, sclerae normal ENT: normal ENT inspection, hearing grossly normal, pharynx normal (dry mucous membranes ) Neck: supple, thyroid normal, trachea midline Respiratory/Chest: chest non-tender, lungs clear, normal breath sounds, no respiratory distress, no accessory muscle use Cardiovascular: regular rate, rhythm, no murmur, normal peripheral pulses Abdomen/GI: non tender, soft, no organomegaly Back: normal inspection Extremities/Musculoskelatal: normal inspection, no calf tenderness, no pedal edema Neurologic/Psych: csr II-XII nml as tested, no motor/sensory deficits ( Trace clonus noted on PETER of BUE. ), alert, normal mood/affect, normal reflexes , oriented x 3 Hospital Course This is a 77yo M with a PMH of seizure disorder and anxiety who presents after an unwitnessed seizure earlier today. Absence seizures: Describes episodes last Thursday, today at work and while in radiology compliance? Lamictal and Zonegran levels pending appreciate neurology inputs increased Lamictal to 200mg bid EEG UNREMARKABLE stable f/u with neurology plan for referral to epilepsy specialist referral as per neurology Anxiety, insomnia: on Xanax HS dose discharged home Total time spent on discharge = 35MINUTES This includes examination of the patient, discharge planning, medication reconciliation, and communication with other providers. Discharge Instructions Please take this sheet to every appointment for the next month Discharge Instructions Date of Service Sep 02, 2017. Admission Reason for Admission: Seizure, Absence Discharge Discharge Diagnosis / Problem: absence seizures Discharge Goals Goal(s): Decrease discomfort, Improve function Activity Recommendations Activity Limitations: resume your previous activity . Instructions / Follow-Up Instructions / Follow-Up FOLLOWUP WITH FAMILY DOCTOR ON Sep AT 11:05AM FOLLOWUP WITH NEUROLOGY IN 1-2 WEEKS. REFERRAL TO EPILEPSY SPECIALIST PER Current Hospital Diet Patient's current hospital diet: Regular Diet Discharge Diet Recommended Diet: Regular Diet Pending Studies Studies pending at discharge: no Medical Emergencies . Who to Call and When: Medical Emergencies: If at any time you feel your situation is an emergency, please call 911 immediately. . Non-Emergent Contact Non-Emergency issues call your: Primary Care Provider . . "Provider Documentation" section prepared by Jaydon Cisneros. . VTE Core Measure Inpt VTE Proph given/why not?: Unfractionated heparin SQ
== END 2017-09-02 14:16 | disposition home or self-care (01) | DRG 101 ==
LOC: EDBD 17:53 → C.EDC 17:54 → C.MED 21:32 → EDBEDREQ 22:03 → ENRESERV 23:23 → OBSVTOIN 09-01 13:04
PROVIDERS: ADMIT Internal Medicine; ATTEND Internal Medicine
DX: G40.209 Localization-related (focal) (partial) symptomatic epilepsy and epileptic syndromes with complex partial seizures, not intractable, without status epilepticus (principal); F41.8 Other specified anxiety disorders; G47.00 Insomnia, unspecified

== ENCOUNTER 2020-04-17 16:45 | Inpatient (IN) ==
[2020-04-17] MEDS ORDERED: SODIUM CHLORIDE 0.9% 500 ML IV ONE (17:19)
[2020-04-17 17:58] LABS: Basophils # (auto) 0.01 K/uL (0-0.2); Basophils % (auto) 0.1 %; Eosinophils # (auto) 0.01 K/uL (0-0.5); Eosinophils % (auto) 0.1 %; Hematocrit (blood only) 46.7 % (42-52); Hemoglobin 16.1 g/dL (14.0-18.0); Immature Granulocytes # (auto) 0.04 K/uL (0.00-0.02); Immature Granulocytes % (auto) 0.5 %; Lymphocytes % (auto) 11.5 %; Mean Corpuscular Hgb Conc 34.5 g/dL (32-36); Mean Platelet Volume 10.6 fL (7.4-10.4); Monocytes # (auto) 0.47 K/uL (0.11-0.59); Neutrophils # (auto) 6.38 K/uL (1.4-6.5); Neutrophils % (auto) 81.8 %; Platelet Count 150 K/uL (130-400); RDW Coefficient of Variation 13.1 % (11.5-14.5); Red Blood Count 5.19 M/uL (4.7-6.1); White Blood Count 7.81 K/uL (4.8-10.8)
[2020-04-17 18:10] LABS: INR 1.1 (0.9-1.1); Partial Thromboplastin Time 28.8 Seconds (21.0-31.0); Prothrombin Time 11.4 Seconds (9.0-12.0)
[2020-04-17 18:15] LABS: Alanine Aminotransferase 32 U/L (12-78); Albumin Level 3.9 gm/dl (3.4-5.0); Aspartate Aminotransferase 24 U/L (15-37); BUN Creatinine Ratio 15.4 (10-20); Blood Urea Nitrogen 17 mg/dl (7-18); Calcium 8.7 mg/dl (8.5-10.1); Carbon Dioxide 25 mmol/L (21-32); Chloride 107 mmol/L (98-107); Creatinine Clr Calc Pharmacy 57.7 ml/min; Est GFR (Non-African American) 64.7; Glucose 117 mg/dl (70-99); Lipase 80 U/L (73-393); Magnesium 1.9 mg/dl (1.8-2.4); Potassium 4.3 mmol/L (3.5-5.1); Sodium 138 mmol/L (136-145)
[2020-04-17 18:26] LABS: Albumin Globulin Ratio 1.1 (0.9-2); Alkaline Phosphatase 88 U/L (45-117); Bilirubin,Total 0.8 mg/dl (0.2-1); Globulin 3.5 gm/dl (2.5-4.0); Phosphorus 2.9 mg/dl (2.5-4.9); Thyroid Stimulating Hormone 0.943 uIu/ml (0.300-4.500); Total Protein 7.4 gm/dl (6.4-8.2); Troponin I < 0.015 ng/ml (0-0.045)
--- NOTE | 2020-04-17 18:26 | CT Scan Report ---
CT head/brain wo con CLINICAL HISTORY: 79 years-old Male with fever, seizure, h/o sz. Acute fever with seizure like activ ity TECHNIQUE: Multiple axial CT images of the head were obtained without contrast. A dose lowering tech nique was utilized adhering to the principles of ALARA. CT DOSE: 638.56 mGycm COMPARISON: Brain MRI 05/04/2019, head CT 08/31/2017 FINDINGS: No acute intracranial hemorrhage, midline shift, intracranial mass, hydrocephalus, territorial ischem ia or abnormal extra-axial collection. Mild age-related involutional changes. Patchy white matter hyp odensities suggest probable chronic microvascular ischemic disease. Cerebral vascular calcifications. The calvarium is intact. Prior bilateral lens replacement. The paranasal sinuses, mastoid air cells, and middle ear cavities are clear. IMPRESSION: No acute intracranial abnormality. ACT 112: Negative or not required by law. The above report was generated using voice recognition software. It may contain grammatical, syntax o r spelling errors. Electronically signed by: Julian Hillman M.D. 04/17/2020 6:24 PM
[2020-04-17 19:18] LABS: Appearance Urine Cloudy (Clear); Bacteria Urine Automated Negative (Negative); Bilirubin Urine Negative (Negative); Blood Urine 3+ (Negative); Cast Urine Automated 0 /lpf (0-5); Color Urine Yellow; Glucose Urine UA Negative (Negative); Ketones Urine 1+ (Negative); Leukocyte Esterase Urine Negative (Negative); Nitrite Urine Negative (Negative); Protein Urine Trace (Negative); RBC Urine Automated >30 /hpf (0-4); Specific Gravity Urine 1.015 (1.000-1.030); Urobilinogen Urine Negative (Negative)
--- NOTE | 2020-04-17 19:27 | XRay Report ---
XR chest 1V portable HISTORY: 79 years-old Male Chest Pain acute atypical chest pain COMPARISON: Chest radiograph 08/31/2017 TECHNIQUE: Portable AP view of the chest FINDINGS: Cardiomediastinal and hilar silhouettes are within normal limits. No pneumothorax, pleural effusion, airspace consolidation or overt pulmonary edema. Bones of the chest appear grossly intact. IMPRESSION: No acute process. ACT 112: Negative or not required by law. The above report was generated using voice recognition software. It may contain grammatical, syntax o r spelling errors. Electronically signed by: Julian Hillman M.D. 04/17/2020 7:26 PM
[2020-04-17] MEDS ORDERED: LORazepam 1 MG/2 ML VIAL IV STA (19:40)
[2020-04-17] MEDS ORDERED: SODIUM CHLORIDE 0.9% IV STA (19:40)
[2020-04-17] MEDS ORDERED: LEVETIRACETAM IV STA (19:40)
[2020-04-17] MEDS ORDERED: SODIUM CHLORIDE 0.9% IV ONE (20:00)
[2020-04-17] MEDS ORDERED: LEVETIRACETAM IV ONE (20:00)
--- NOTE | 2020-04-17 21:23 | History & Physical Report ---
Date of Service April 17, 2020 Assessment & Plan (1) Seizure disorder: (2) Atrial fibrillation: (3) Insomnia: (4) Hematuria: (5) LUIS (generalized anxiety disorder): (6) Paroxysmal atrial flutter: (7) Depression: This is a 79 yo M with a PMH of seizure disorder, insomnia, MDD, LUIS, paroxysmal A Flutter on Eliquis and kidney stones who presents with subjective fever and feeling disoriented since yesterday. Patient seen in collaboration with Dr. Cervantes. Please see addendum for assessment and plan. History of Present Illness Chief Complaint: subjective fever, feeling disoriented, seizure d/o Primary Care Provider: Manjit Ryan MD This is a 79 yo M with a PMH of seizure disorder, insomnia, MDD, LUIS, paroxysmal A Flutter on Eliquis and kidney stones who presents with subjective fever and feeling disoriented since yesterday. Patient has history of seizure disorder and follows with Dr. Rubalcava of [facility] neurology. Started to feel unwell yesterday with subjective fever and chills as well as feeling generally disoriented. In the afternoon, patient was walking his dog near his house and came to lying on the ground. Dates he felt confused at that point and similar to how he feels after seizures in the past. Denies any tongue biting or bowel/bladder incontinence. Continued to feel forgetful and disoriented today so came to ED for further evaluation. Per ER physician, thought to have had a seizure episode while in the ED this evening and was given loading dose of Keppra as well as 1 mg of Ativan. Endorses urinary incontinence around this time but does not remember anything else about the episode. Patient currently feels fatigued but otherwise without complaint. Wonders if his Xanax is contributing to these symptoms. Has taken it for years due to insomnia. Denies any lightheadedness, visual changes, chest pain, palpitations, shortness of breath, nausea, vomiting, abdominal pain, dysuria, diarrhea constipation. Of note, patient has seen [facility] neurology a few times over the past few years but does not remember this and thinks he primarily follows with Dr. Rubalcava. Anti-epileptic medication includes Lamictal 200 mg p.o. twice daily and Zonegran 200 mg twice daily. States he has missed 2-3 doses in the past week due to forgetting to take his medication. Also follows with Dr. Watt of card iology due to history of paroxysmal a flutter on Eliquis. Was restarted on Eliquis 5 mg twice daily over the summer but developed blood in stool and urine. Decreased his Eliquis dose to 5 mg at bedtime on his own and has not had any gross hematuria or blood in stool since then. Patient lives alone and admits to having difficulty remembering medications. His only family in town is his [id number], who brought him to the ED today. Allergies Allergy/AdvReac Type Severity Reaction Status Date / Time gadobutrol [From Gadavist] Allergy Unknown Rash Verified 04/17/20 20:03 citalopram AdvReac Unknown Seizure Verified 04/17/20 20:03 Home Medications Home Medications Medication Instructions Recorded Confirmed Type alprazolam 0.5 mg tablet 0.5 mg PO HS 06/28/19 04/17/20 History zonisamide 100 mg capsule 200 mg PO BID cap 06/28/19 04/17/20 History apixaban [Eliquis] 5 mg PO HS 04/17/20 04/17/20 History lamotrigine 200 mg PO BID 04/17/20 04/17/20 History Past Med/Surg History Medical History Depression LUIS (generalized anxiety disorder) Insomnia Paroxysmal atrial flutter Seizure disorder Surgical History History of cataract surgery History of oral surgery Hx of tonsillectomy Family History Son Atrial fibrillation Father Atrial fibrillation Leukemia Myotonic muscular dystrophy Social History Smoking Status: Never smoker Hx Alcohol Use: No Hx Substance Use: No Preferred Language: Bengali Communication Ability: Effective Beliefs That Will Affect Care: None Current Living Situation: Alone Other Information That Helps Us Care for You: No Feels Safe at Home: Yes Safety Concerns: Feels Safe At This Time Review of Systems Review of Systems: At least ten systems reviewed and negative except as noted in the HPI. Physical Exam Physical Exam: General Appearance: WD/WN, vitals as above, NAD, sitting up in bed, pleasant, intermittently confused Head: normocephalic, atraumatic Eyes: normal inspection, PERRL, conjunctivae normal, anicteric sclerae ENT: external ear and nose normal, oropharynx normal Neck: normal visual inspection, trachea midline, no thyromegaly Respiratory: normal respiratory effort, lungs clear to auscultation, no wheeze, rales, rhonchi. No accessory muscle use Cardiovascular: irregular rate & rhythm, no murmur appreciated, normal peripheral pulses, no BLE edema. Vessels: no JVD Chest: normal inspection of chest Abdomen/GI: normal bowel sounds, soft, nontender, no hepatosplenomegaly Extremities/Musculoskeletal: no cyanosis or clubbing, extremities motor strength 5/5 Neurologic: PERRL, EOMI, accommodation nl, no face palsy, no dysarthria, CN's II-XI intact bilaterally and moves all extremities Psychiatric: A+Ox3, euthymic affect Skin: no rashes, normal color, warm/dry Results & Data Results & Data ([facility]) Vital Signs (Past 12 Hours) Vital Signs Temp Pulse Resp BP Pulse Ox 04/17/20 19:31 101 H 24 97 04/17/20 19:30 96 H 30 H 154/99 H 96 04/17/20 19:02 103 H 23 96 04/17/20 19:01 97 H 16 160/104 H 04/17/20 18:30 95 H 20 164/118 H 99 04/17/20 18:00 96 H 33 H 165/112 H 99 04/17/20 17:30 99 H 21 160/104 H 97 04/17/20 17:22 91 H 30 H 167/100 H 96 04/17/20 17:18 111 H 18 99 04/17/20 16:51 36.6 C 111 H 18 159/93 H 99 Laboratory Results Short CBC 04/17/20 Range/Units 17:34 WBC 7.81 (4.8-10.8) K/uL Hgb 16.1 (14.0-18.0) g/dL Hct 46.7 (42-52) % Plt Count 150 (130-400) K/uL BMP 04/17/20 17:34 Sodium 138 Potassium 4.3 Chloride 107 Carbon Dioxide 25 BUN 17 Creatinine 1.09 Glucose 117 H Calcium 8.7 Cardiac Enzymes 04/17/20 Range/Units 17:34 Troponin I < 0.015 (0-0.045) ng/ml Liver Function 04/17/20 Range/Units 17:34 Total Bilirubin 0.8 (0.2-1) mg/dl AST 24 (15-37) U/L ALT 32 (12-78) U/L Alkaline Phosphatase 88 (45-117) U/L Albumin 3.9 (3.4-5.0) gm/dl Urine 04/17/20 Range/Units 19:00 Urine Color Yellow Urine Appearance Cloudy A (Clear) Urine pH 7.0 (4.5-7.5) Ur Specific Ald[place] 1.015 (1.000-1.030) Urine Protein Trace H (Negative) Urine Glucose (UA) Negative (Negative) Diagnostic Findings Head CT: IMPRESSION: No acute intracranial abnormality. CXR: IMPRESSION: No acute process. ECG Rhythm: atrial fibrillation Supervising Physician Co-Signing Physician Notes IM ATTENDING : Patient seen and examined. History obtained from patient and records. Preceding documentation by Ms. Bharati Serna PA-C reviewed. FINAL ASSESSMENT AND PLAN as follows : Rapid atrial fibrillation (hx atrial flutter discovered on outpatient PCP visit last month, on Eliquis) Possibly secondary breakthrough seizures secondary to erratic medication compliance (forgetfulness as per patient account) hx complex partial seizures, history traumatic brain injury i Unwitnessed syncopal event from probable breakthrough seizure Rule out orthostasis Elevated BP Likely chronic hypertension given LVH on recent outpatient echo. Hyperglycemia rule out DM Possible functional disability (forgetting to take medications ) PCU given rapid A. fib Initiate beta-brandon therapy for rate and BP control Cardiology consult RE rapid A. fib IVF, Check orthostatic vitals Continue current AED medications until patient seen by patient's [facility] neurologist for evaluation of breakthrough seizures. Seizure precautions, Ativan as needed Check hemoglobin A1c DVT prophylaxis. Lovenox subcu Full code Text document was generated using [employer] voice recognition software. It may contain grammatical or spelling errors. Kindly contact undersigned for clarification of any documentation item in question.
[2020-04-17] MEDS ORDERED: METOPROLOL TARTRATE 25 MG TAB PO STA (22:50)
[2020-04-17] MEDS ORDERED: NITROGLYCERIN SL 0.4 MG/TAB TAB SL PRN (23:36)
[2020-04-17] MEDS ORDERED: PROMETHAZINE HCL 12.5 MG in SODIUM CHLORIDE 0.9% 50 ML IV PRN (23:36)
[2020-04-17] MEDS ORDERED: MAGNESIUM SULFATE / D5W 1 GM/100 ML BAG IV ONE (23:36)
[2020-04-17] MEDS ORDERED: LORazepam 1 MG/2 ML VIAL IV PRN (23:36)
[2020-04-17] MEDS ORDERED: APIXABAN 5 MG TABLET PO SCH (23:36)
[2020-04-17] MEDS ORDERED: SODIUM CHLORIDE 0.9% 1000ML 1,000 ML IV ONE (23:36)
[2020-04-17] MEDS ORDERED: ACETAMINOPHEN 325 MG TAB PO PRN (23:36)
[2020-04-18] MEDS: ALPRAZolam 0.5 MG TABLET PO SCH ×2 (00:49→19:43)
--- NOTE | 2020-04-18 01:09 | Emergency Department Note ---
Impression & Plan Recurrent seizures, Seizure disorder, Atrial fibrillation ED Provider Note NAME: SHEELA VERA AGE: 79 SEX: M ARRIVES VIA: Walk-In INFORMANT: Patient, ED PROVIDER(S): Neal Cunningham MD CHIEF COMPLAINT: Fever PLAN: Disposition: Admit MEDICAL DECISION MAKING: The patient is a pleasant 79-year-old gentleman with a past medical history of seizure disorder (documented history of partial complex seizures) on Lamictal and zonisamide, atrial fibrillation on Eliquis, anxiety, depression who presents emergency department for evaluation and concern of feverishness in the setting of his report of going to a outdoor gathering related to a festival surrounding farm equipment where he reports they were numerous people and no one was wearing masks. Unfortunately, the HPI was somewhat limited as the patient is a poor historian and as we were discussing his concerns he had a partial complex seizure which lasted for approximately 60 seconds followed by brief postictal state of confusion where he was grabbing at his chair and tapping on the wall. While the patient's evaluation was underway his RN did witness a repeat episode with subsequent recovery. Additional history was obtained by the patient's primary contact and ex son-in-law who is the only family he has in the area and the one who brought him to the hospital per his request today. The patient's son-in-law reports that he most recently was told by the patient that he has not had any seizures in years but admits when he picked him up today he appeared somewhat confused as he has had in the past when he was having seizures. The patient's ip-kmw-hk-law reports that the patient lives alone. He further explained the patient's concerns about his recent potential exposures at this gathering. I did explain to him that given the patient appears to be having a new onset of recurrent seizures it is reasonable to admit him to the hospital for better seizure control and that discharging the patient in the state would be unsafe. He did agree with this plan. I did review this plan with the patient at the bedside who was agreeable. However at this time he once again h ad a third partial complex seizure and so subsequently was ordered for Ativan and loaded with Keppra without any further seizure episodes. On exam the patient is afebrile with stable vital signs. However, he will become tachycardic during and briefly after his seizure episodes. He appears clinically dry. He otherwise has no focal neuro deficits. EKG demonstrates atrial fibrillation without overt acute ischemia. Chest x-ray negative for acute process. WBC, H/H and platelets within normal limits. Chemistry without acidosis. Electrolytes and LFTs unremarkable. Troponin negative/undetectable. UA with blood but no convincing evidence of infection. CT head negative for acute process. COVID-19 PCR negative. Case was discussed with Ailin French PAC, with Dr. Helen glover ospitalist who will evaluate the patient for admission. Triage Nursing notes reviewed and agree them. Prior medical records reviewed Vital Signs: reviewed and remarkable for no significant abnormalities Differential diagnosis: Viral syndrome, otitis, pharyngitis, pneumonia, influenza, meningitis, urinary tract infection, sepsis, bacteremia, as well as other pathologies. ER treatment provided: See below. Diagnostics interpreted by me: ECG: Atrial fibrillation, 92 bpm, no ectopy, no overt ST elevation or depression, QTC 457, QRS 106. Cardiac Monitoring: An order for continuous cardiac monitoring was placed and demonstrated defibrillation, 92 bpm, no ectopy. Laboratory studies: See below Imaging studies: XR chest 1V portable HISTORY: 79 years-old Male Chest Pain acute atypical chest pain COMPARISON: Chest radiograph 08/31/2017 TECHNIQUE: Portable AP view of the chest FINDINGS: Cardiomediastinal and hilar silhouettes are within normal limits. No pneumot horax, pleural effusion, airspace consolidation or overt pulmonary edema. Bones of the chest appear grossly intact. IMPRESSION: No acute process. ACT 112: Negative or not required by law. CT head/brain wo con CLINICAL HISTORY: 79 years-old Male with fever, seizure, h/o sz. Acute fever with seizure like activity TECHNIQUE: Multiple axial CT images of the head were obtained without contrast. A dose lowering technique was utilized adhering to the principles of ALARA. CT DOSE: 638.56 mGycm COMPARISON: Brain MRI 05/04/2019, head CT 08/31/2017 FINDINGS: No acute intracranial hemorrhage, midline shift, intracranial mass, hydrocephalus, territorial ischemia or abnormal extra-axial collection. Mild age-related involutional changes. Patchy white matter hypodensities suggest probable chronic microvascular ischemic disease. Cerebral vascular calcifications. The calvarium is intact. Prior bilateral lens replacement. The paranasal sinuses, mastoid air cells, and middle ear cavities are clear. IMPRESSION: No acute intracranial abnormality. Consultation(s): Case was discussed with Ailin French PAC, with Dr. Helen Parisi hospitalist who will evaluate the patient for admission. 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 Unfortunately, the HPI was somewhat limited as the patient is a poor historian and as we were discussing his concerns he had a partial complex seizur e which lasted for approximately 60 seconds followed by brief postictal state of confusion where he was grabbing at his chair and tapping on the wall. While the patient's evaluation was underway his RN did witness a repeat episode with subsequent recovery. Additional history was obtained by the patient's primary contact and ex son-in-law who is the only family he has in the area and the one who brought him to the hospital per his request today. The patient's son-in-law reports that he most recently was told by the patient that he has not had any seizures in years but admits when he picked him up today he appeared somewhat confused as he has had in the past when he was having seizures. The patient's nj-ify-xk-law reports that the patient lives alone. He further explained the patient's concerns about his recent potential exposures at this gathering. ROS: See above HPI for pertinent positives & negatives. A total of 10 systems reviewed and were otherwise negative. PAST MEDICAL HISTORY:See Below PAST SURGICAL HISTORY:See Below FAMILY HISTORY:See Below SOCIAL HISTORY:See Below HOME MEDICATIONS:See Below ALLERGIES:See Below VITALS:See Below PHYSICAL EXAMINATION: GENERAL: Awake, alert, fatigued-appearing, in no distress HENT: Normocephalic, atraumatic. Oropharynx with dry mucous membranes and otherwise unremarkable. EYES: Normal conjunctiva. Sclera non-icteric. EOMI. No nystamgus. PEARRL. NECK: Supple. No nuchal rigidity. FROM. No JVD. RESPIRATORY: Clear to auscultation. CARDIAC: Regular rate, normal rhythm. Extremities warm and well perfused. Pulses equal. ABDOMEN: Soft, non-distended. No tenderness to palpation. No rebound or guardi ng. No masses. RECTAL: Deferred. MUSCULOSKELETAL: Chest examination reveals no tenderness. The back is symmetrical on inspection without obvious abnormality. There is no CVA tenderness to palpation. No joint edema. LOWER EXTREMITIES: Calves are equal size bilaterally and non-tender. No edema. No discoloration. NEURO: Normal sensorium. No sensory or motor deficits noted. 5/5 strength and SILT x 4 extremities. Cerebellar function intact including [id number], alternating palms, [id number]. No clonus. DTRs wnl. SKIN: No rash or jaundice noted. ED COURSE: Critical Care: I have personally spent greater than 75 minutes of critical care time in the direct management of this patient. This includes bedside care, interpretation of diagnostic studies, and testing, discussion with consultants, patient, and family members, and other required patient management activities. This 75 minutes is in excess of all separately billable procedures. Neal Cunningham MD Past Med/Surg History Medical History Depression LUIS (generalized anxiety disorder) Insomnia Paroxysmal atrial flutter Seizure disorder Surgical History History of cataract surgery History of oral surgery Hx of tonsillectomy Family History Son Atrial fibrillation Father Atrial fibrillation Leukemia Myotonic muscular dystrophy Social History Smoking Status: Never smoker Hx Alcohol Use: No Hx Substance Use: No Preferred Language: Malawian Communication Ability: Effective Beliefs That Will Affect Care: None Current Living Situation: Alone Other Information That Helps Us Care for You: No Feels Safe at Home: Yes Safety Concerns: Feels Safe At This Time Allergies Allergies Allergy/AdvReac Type Severity Reaction Status Date / Time gadobutrol [From Gadavist] Allergy Unknown Rash Verified 04/17/20 20:03 citalopram AdvReac Unknown Seizure Verified 04/17/20 20:03 Home Meds Home Medications Medication Instructions Recorded Confirmed alprazolam 0.5 mg tablet 0.5 mg PO HS 06/28/19 04/17/20 zonisamide 100 mg capsule 200 mg PO BID cap 06/28/19 04/17/20 apixaban [Eliquis] 5 mg PO HS 04/17/20 04/17/20 lamotrigine 200 mg PO BID 04/17/20 04/17/20 Results & Data (ED) Vital Signs Vital Signs - 24 hr 04/17/20 16:51 04/17/20 17:18 04/17/20 17:22 Temperature 36.6 C Temperature Source Oral Pulse Rate 111 H 111 H 91 H Pulse Rate from SpO2 Sensor 93 H Pulse Rhythm Irregular Respiratory Rate 18 18 30 H Blood Pressure 159/93 H 167/100 H Blood Pressure Mean 115 104 Pulse Oximetry 99 99 96 Oxygen Delivery Method Room Air Sepsis Recent Fever Within 48 Hours No Sepsis New/Unexplained Change in Mental Status No Sepsis Action Taken by Nursing No Action Required 04/17/20 17:30 04/17/20 18:00 04/17/20 18:30 Temperature Temperature Source Pulse Rate 99 H 96 H 95 H Pulse Rate from SpO2 Sensor 99 H 96 H 91 H Pulse Rhythm Respiratory Rate 21 33 H 20 Blood Pressure 160/104 H 165/112 H 164/118 H Blood Pressure Mean 117 116 130 Pulse Oximetry 97 99 99 Oxygen Delivery Method Sepsis Recent Fever Within 48 Hours Sepsis New/Unexplained Change in Mental Status Sepsis Action Taken by Nursing 04/17/20 19:01 04/17/20 19:02 04/17/20 19:30 Temperature Temperature Source Pulse Rate 97 H 103 H 96 H Pulse Rate from SpO2 Sensor 101 H 95 H Pulse Rhythm Respiratory Rate 16 23 30 H Blood Pressure 160/104 H 154/99 H Blood Pressure Mean 118 110 Pulse Oximetry 96 96 Oxygen Delivery Method Sepsis Recent Fever Within 48 Hours Sepsis New/Unexplained Change in Mental Status Sepsis Action Taken by Nursing 04/17/20 19:31 04/17/20 19:45 04/17/20 20:01 Temperature Temperature Source Pulse Rate 101 H 97 H 93 H Pulse Rate from SpO2 Sensor 100 H 99 H Pulse Rhythm Respiratory Rate 24 28 H 23 Blood Pressure 177/89 H 154/97 H Blood Pressure Mean 130 113 Pulse Oximetry 97 94 Oxygen Delivery Method Sepsis Recent Fever Within 48 Hours Sepsis New/Unexplained Change in Mental Status Sepsis Action Taken by Nursing 04/17/20 20:30 04/17/20 21:00 04/17/20 21:30 Temperature Temperature Source Pulse Rate 94 H 94 H 98 H Pulse Rate from SpO2 Sensor Pulse Rhythm Respiratory Rate 43 H 19 22 Blood Pressure 145/116 H 159/103 H 148/90 H Blood Pressure Mean 120 110 113 Pulse Oximetry Oxygen Delivery Method Sepsis Recent Fever Within 48 Hours Sepsis New/Unexplained Change in Mental Status Sepsis Action Taken by Nursing 04/17/20 22:00 Temperature Temperature Source Pulse Rate 96 H Pulse Rate from SpO2 Sensor Pulse Rhythm Respiratory Rate 23 Blood Pressure 146/104 H Blood Pressure Mean 110 Pulse Oximetry Oxygen Delivery Method Sepsis Recent Fever Within 48 Hours Sepsis New/Unexplained Change in Mental Status Sepsis Action Taken by Nursing Laboratory Data Attestation: I reviewed the patient's lab results. Result diagrams: 04/17/20 17:34 04/17/20 17:34 Lab Results 04/17/20 04/17/20 04/17/20 Range/Units 17:34 17:34 17:34 WBC 7.81 (4.8-10.8) K/uL RBC 5.19 (4.7-6.1) M/uL Hgb 16.1 (14.0-18.0) g/dL Hct 46.7 (42-52) % MCV 90.0 (80-100) fL MCH 31.0 (25-34) pg MCHC 34.5 (32-36) g/dL RDW Std Deviation 43.0 (36.4-46.3) fL RDW Coeff of Amy 13.1 (11.5-14.5) % Plt Count 150 (130-400) K/uL MPV 10.6 H (7.4-10.4) fL Immature Gran % (Auto) 0.5 % Neut % (Auto) 81.8 % Lymph % (Auto) 11.5 % [place] % (Auto) 6.0 % Eos % (Auto) 0.1 % Baso % (Auto) 0.1 % Neut # (Auto) 6.38 (1.4-6.5) K/uL Lymph # (Auto) 0.90 L (1.2-3.4) K/uL [place] # (Auto) 0.47 (0.11-0.59) K/uL Eos # (Auto) 0.01 (0-0.5) K/uL Baso # (Auto) 0.01 (0-0.2) K/uL Immature Gran # (Auto) 0.04 H (0.00-0.02) K/uL PT 11.4 (9.0-12.0) Seconds INR 1.1 (0.9-1.1) APTT 28.8 (21.0-31.0) Seconds PTT Ratio 1.0 Sodium 138 (136-145) mmol/L Potassium 4.3 (3.5-5.1) mmol/L Chloride 107 (98-107) mmol/L Carbon Dioxide 25 (21-32) mmol/L Anion Gap 6.0 (3-11) BUN 17 (7-18) mg/dl Creatinine 1.09 (0.6-1.4) mg/dl Est Cr Clr Drug Dosing 57.7 ml/min Est GFR ( Amer) 75.0 Est GFR (Non-Af Amer) 64.7 BUN/Creatinine Ratio 15.4 (10-20) Glucose 117 H (70-99) mg/dl Calcium 8.7 (8.5-10.1) mg/dl Phosphorus 2.9 (2.5-4.9) mg/dl Magnesium 1.9 (1.8-2.4) mg/dl Total Bilirubin 0.8 (0.2-1) mg/dl AST 24 (15-37) U/L ALT 32 (12-78) U/L Alkaline Phosphatase 88 (45-117) U/L Troponin I < 0.015 (0-0.045) ng/ml Total Protein 7.4 (6.4-8.2) gm/dl Albumin 3.9 (3.4-5.0) gm/dl Globulin 3.5 (2.5-4.0) gm/dl Albumin/Globulin Ratio 1.1 (0.9-2) Lipase 80 (73-393) U/L TSH 0.943 (0.300-4.500) uIu/ml Urine Color Urine Appearance (Clear) Urine pH (4.5-7.5) Ur Specific [place] (1.000-1.030) Urine Protein (Negative) Urine Glucose (UA) (Negative) Urine Ketones (Negative) Urine Blood (Negative) Urine Nitrite (Negative) Urine Bilirubin (Negative) Urine Urobilinogen (Negative) Ur Leukocyte Esterase (Negative) Urine WBC (Auto) (0-5) /hpf Urine RBC (Auto) (0-4) /hpf U Hyaline Cast (Auto) (0-5) /lpf U Epithel Cells (Auto) (0-5) /lpf Urine Bacteria (Auto) (Negative) COVID-19 Eval Order COVID-19 PCR (Negative) 04/17/20 04/17/20 04/17/20 Range/Units 17:34 17:34 19:00 WBC (4.8-10.8) K/uL RBC (4.7-6.1) M/uL Hgb (14.0-18.0) g/dL Hct (42-52) % MCV (80-100) fL MCH (25-34) pg MCHC (32-36) g/dL RDW Std Deviation (36.4-46.3) fL RDW Coeff of Amy (11.5-14.5) % Plt Count (130-400) K/uL MPV (7.4-10.4) fL Immature Gran % (Auto) % Neut % (Auto) % Lymph % (Auto) % [place] % (Auto) % Eos % (Auto) % Baso % (Auto) % Neut # (Auto) (1.4-6.5) K/uL Lymph # (Auto) (1.2-3.4) K/uL [place] # (Auto) (0.11-0.59) K/uL Eos # (Auto) (0-0.5) K/uL Baso # (Auto) (0-0.2) K/uL Immature Gran # (Auto) (0.00-0.02) K/uL PT (9.0-12.0) Seconds INR (0.9-1.1) APTT (21.0-31.0) Seconds PTT Ratio Sodium (136-145) mmol/L Potassium (3.5-5.1) mmol/L Chloride (98-107) mmol/L Carbon Dioxide (21-32) mmol/L Anion Gap (3-11) BUN (7-18) mg/dl Creatinine (0.6-1.4) mg/dl Est Cr Clr Drug Dosing ml/min Est GFR ( Amer) Est GFR (Non-Af Amer) BUN/Creatinine Ratio (10-20) Glucose (70-99) mg/dl Calcium (8.5-10.1) mg/dl Phosphorus (2.5-4.9) mg/dl Magnesium (1.8-2.4) mg/dl Total Bilirubin (0.2-1) mg/dl AST (15-37) U/L ALT (12-78) U/L Alkaline Phosphatase (45-117) U/L Troponin I (0-0.045) ng/ml Total Protein (6.4-8.2) gm/dl Albumin (3.4-5.0) gm/dl Globulin (2.5-4.0) gm/dl Albumin/Globulin Ratio (0.9-2) Lipase (73-393) U/L TSH (0.300-4.500) uIu/ml Urine Color Yellow Urine Appearance Cloudy A (Clear) Urine pH 7.0 (4.5-7.5) Ur Specific [place] 1.015 (1.000-1.030) Urine Protein Trace H (Negative) Urine Glucose (UA) Negative (Negative) Urine Ketones 1+ H (Negative) Urine Blood 3+ H (Negative) Urine Nitrite Negative (Negative) Urine Bilirubin Negative (Negative) Urine Urobilinogen Negative (Negative) Ur Leukocyte Esterase Negative (Negative) Urine WBC (Auto) 1-5 (0-5) /hpf Urine RBC (Auto) >30 H (0-4) /hpf U Hyaline Cast (Auto) 0 (0-5) /lpf U Epithel Cells (Auto) 5-10 H (0-5) /lpf Urine Bacteria (Auto) Negative (Negative) COVID-19 Eval Order Covid19 Done at [facility] COVID-19 PCR NEGATIVE (Negative) Administered Medications Alprazolam (Alprazolam 0.5 Mg Tablet) 0.5 mg PO HS ROXANNA Stop: 05/17/20 23:35 Last Admin: 04/18/20 00:49 Dose: 0.5 mg Documented by: [id number] Apixaban (Apixaban 5 Mg Tablet) 5 mg PO HS ROXANNA Stop: 05/17/20 23:35 Last Admin: 04/18/20 00:49 Dose: 5 mg Documented by: [id number] Sodium Chloride (Nss 1000ml) 1,000 mls @ 60 mls/hr IV .[id number] ONE Stop: 04/18/20 16:15 Last Admin: 04/18/20 00:50 Dose: 60 mls/hr Documented by: [id number] Discontinued Medications Sodium Chloride (Nss) 500 mls @ 999 mls/hr IV .[id number] ONE Stop: 04/17/20 17:49 Last Infusion: 04/17/20 19:10 Dose: 0 mls/hr Documented by: [id number] Admin: 04/17/20 17:51 Dose: 999 mls/hr Documented by: [id number] Lorazepam (Ativan) 1 mg in 2 mls @ 2 mls/min IV NOW STA Stop: 04/17/20 19:41 Last Admin: 04/17/20 19:46 Dose: 2 mls/min Documented by: [id number] Levetiracetam 1,600 mg/ Sodium (Chloride) 266 mls @ 1,064 mls/hr IV NOW ONE Stop: 04/17/20 20:14 Last Infusion: 04/17/20 20:23 Dose: 0 mls/hr Documented by: [id number] Admin: 04/17/20 20:08 Dose: 1,064 mls/hr Documented by: [id number] Magnesium Sulfate/Dextrose (Magnesium Sulfate / D5w) 1 gm in 100 mls @ 50 mls/hr IV ONE ONE Stop: 04/18/20 01:35 Last Infusion: 04/18/20 02:55 Dose: 0 mls/hr Documented by: [id number] Admin: 04/18/20 00:49 Dose: 50 mls/hr Documented by: [id number] Metoprolol Tartrate (Metoprolol Tartrate 25 Mg Tab) 25 mg PO NOW STA Stop: 04/17/20 22:51 Last Admin: 04/17/20 23:12 Dose: 25 mg Documented by: [id number] Blood Pressure Blood Pressure Findings: Normal blood pressure Blood Pressure Disposition: further management by hospitalist Discharge Plan Visit Data Chief Complaint: Fever Stated Complaint: DON'T FEEL GOOD, POSSIBLE FEVER ED Provider: Neal Cunningham Discharge Problem: Recurrent seizures, Seizure disorder, Atrial fibrillation Patient Disposition: Admitted As Inpatient Discharge Instructions Interventions: ED Discharge Assessment Last Done: 04/17/20 23:16 Discharge Problem: Atrial fibrillation Qualifiers: Atrial fibrillation type: unspecified Qualified Code(s): I48.91 - Unspecified atrial fibrillation
[2020-04-18 05:59] LABS: Estimated Average Glucose 91 mg/dl; Hemoglobin A1C 4.8 % (4.5-5.6)
[2020-04-18 06:41] LABS: Basophils # (auto) 0.03 K/uL (0-0.2); Basophils % (auto) 0.4 %; Eosinophils # (auto) 0.11 K/uL (0-0.5); Eosinophils % (auto) 1.4 %; Hematocrit (blood only) 44.5 % (42-52); Hemoglobin 15.6 g/dL (14.0-18.0); Immature Granulocytes # (auto) 0.03 K/uL (0.00-0.02); Immature Granulocytes % (auto) 0.4 %; Lymphocytes # (auto) 2.03 K/uL (1.2-3.4); Lymphocytes % (auto) 25.3 %; Mean Corpuscular Hemoglobin 31.5 pg (25-34); Mean Corpuscular Hgb Conc 35.1 g/dL (32-36); Mean Corpuscular Volume 89.9 fL (80-100); Mean Platelet Volume 10.2 fL (7.4-10.4); Monocytes # (auto) 0.76 K/uL (0.11-0.59); Monocytes % (auto) 9.5 %; Neutrophils # (auto) 5.05 K/uL (1.4-6.5); Platelet Count 177 K/uL (130-400); RDW Coefficient of Variation 13.1 % (11.5-14.5); RDW Standard Deviation 42.4 fL (36.4-46.3); Red Blood Count 4.95 M/uL (4.7-6.1); White Blood Count 8.01 K/uL (4.8-10.8)
[2020-04-18 07:14] LABS: BUN Creatinine Ratio 14.1 (10-20); Calcium 8.1 mg/dl (8.5-10.1); Creatinine Clr Calc Pharmacy 65.5 ml/min; Est GFR (African American) 87.4; Est GFR (Non-African American) 75.4; Potassium 3.5 mmol/L (3.5-5.1)
[2020-04-18] MEDS: lamoTRIgine 100 MG TAB PO SCH ×2 (08:27→19:44)
[2020-04-18] MEDS: METOPROLOL TARTRATE 25 MG TAB PO SCH ×2 (08:28→19:43)
--- NOTE | 2020-04-18 10:57 | Cardiology Consultation ---
Date of Consultation April 18, 2020 Assessment & Plan (1) Atrial fibrillation with RVR: (2) Moderate mitral regurgitation: (3) Moderate tricuspid regurgitation: 79-year-old patient admitted with possible seizure and confusion. Atrial fibrillation with rapid ventricular response recorded in the ER. Tolerating metoprolol 25 mg twice daily with improvement of heart rate control. He is asymptomatic in regard to his atrial fibrillation. Patient reports possible hematuria and dark-colored stools in the past. Hemoglobin within normal limits. Recommend increasing Eliquis to 5 mg twice daily with continued observation at this time. Recommend urology referral. Hemoccult stool with potential referral to gastroenterology pending review of result. Transition to once daily Toprol- XL at discharge to improve compliance. All questions answered to patient's satisfaction. Thank you for allowing me to participate in the care of your patient. History of Present Illness Reason for Consultation: Atrial fibrillation with RVR Requesting Physician: Dr. Cervantes Attending Physician: Diana Escalona MD History of Present Illness 79-year-old patient presented emergency department due to possible seizure and confusion. Atrial fibrillation with borderline rapid ventricular response noted in the ER. Patient recently evaluated in the cardiology clinic for asymptomatic atrial fibrillation/flutter. Prescribed Eliquis, 5 mg twice daily. Patient reports possible dark-colored stool and hematuria. He reduced Eliquis to 5 mg in the evening. His hemoglobin has remained stable. Prior colonoscopy performed 2015 demonstrated isolated polyp. Denies melena or hematochezia. No hemoptysis or coffee-ground emesis. Metoprolol 25 mg twice daily added on admission. Heart rate controlled overnight. Patient is unaware of his atrial fibrillation. Denies palpitations, lightheadedness, or dizziness. No chest discomfort or unusual shortness of breath. Denies any recent changes in functional capacity or anginal symptoms. No orthopnea, PND, or lower extremity edema. Denies personal history of coronary disease, congestive heart failure, rheumatic fever as a child, prior cerebrovascular accident, or diabetes. Allergies Allergy/AdvReac Type Severity Reaction Status Date / Time gadobutrol [From Gadavist] Allergy Unknown Rash Verified 04/17/20 20:03 citalopram AdvReac Unknown Seizure Verified 04/17/20 20:03 Home Medications Home Medications Medication Instructions Recorded Confirmed Type alprazolam 0.5 mg tablet 0.5 mg PO HS 06/28/19 04/17/20 History zonisamide 100 mg capsule 200 mg PO BID cap 06/28/19 04/17/20 History apixaban [Eliquis] 5 mg PO HS 04/17/20 04/17/20 History lamotrigine 200 mg PO BID 04/17/20 04/17/20 History Patient History Medical History Depression LUIS (generalized anxiety disorder) Insomnia Paroxysmal atrial flutter Seizure disorder Surgical History History of cataract surgery History of oral surgery Hx of tonsillectomy Family History Son Atrial fibrillation Father Atrial fibrillation Leukemia Myotonic muscular dystrophy Social History Smoking Status: Never smoker Hx Alcohol Use: No Hx Substance Use: No Preferred Language: Nepalese Communication Ability: Effective Beliefs That Will Affect Care: None marital status: / Current Living Situation: Alone Other Information That Helps Us Care for You: No Feels Safe at Home: Yes Safety Concerns: Feels Safe At This Time Review of Systems Review of Systems: All systems reviewed & are unremarkable except as noted in HPI & below Results & Data ([facility]) Vital Signs (Past 12 Hours) Vital Signs Temp Pulse Pulse Resp BP BP BP 04/18/20 07:13 37 C 80 18 135/74 04/18/20 04:00 36.8 C 97 H 16 137/96 04/17/20 23:42 37.2 C 96 H 16 119/97 04/17/20 23:16 92 H 20 151/102 H 04/17/20 23:00 92 H 20 151/102 H Pulse Ox 04/18/20 07:13 98 04/18/20 04:00 97 04/17/20 23:42 97 04/17/20 23:16 98 04/17/20 23:00 98 Diagnostic Findings 2D echocardiogram report summary 04/05/2020: There was atrial flutter during the examination. The left ventricular cavity size is normal. The LV wall thickness is mildly increased (concentric). The left ventricular wall motion is normal. The qualitative LV ejection fraction is 60-64% (normal). The left atrium is moderately enlarged (42-48 ml/m^2). The right atrium is mildly enlarged. Moderate secondary mitral regurgitation is present. Moderate tricuspid regurgitation is present. There is no evidence of pulmonary hypertension.
[2020-04-18] MEDS: APIXABAN 5 MG TABLET PO SCH ×2 (11:42→19:44)
--- NOTE | 2020-04-18 13:11 | Electrocardiogram Report ---
Test Reason : Blood Pressure : / mmHG Vent. Rate : 092 BPM Atrial Rate : 441 BPM P-R Int : 000 ms QRS Dur : 106 ms QT Int : 370 ms P-R-T Axes : 000 083 060 degrees QTc Int : 457 ms Atrial fibrillation Poor R wave progression, consider anterior FL vs. lead placement vs. LVH Abnormal ECG When compared with ECG of 31-AUG-2017 18:29, Atrial fibrillation has replaced Sinus rhythm Confirmed by Sean Harkins ([id number]) on 04/18/2020 1:10:46 PM Referred By: REFERRED SELF Confirmed By:Sean Harkins
--- NOTE | 2020-04-18 17:08 | Hospitalist Progress Note ---
Date of Service April 18, 2020 Assessment & Plan (1) Seizure disorder: Patient has skipped several doses of his antiseizure meds Presented with brief episode of staring spells /seizure like activity Appreciate input from neurology Recommends to continue home dose of antiseizure medications: zonegran 200mg bid, lamictal 200mg bid Outpatient follow-up with neurology Ghada Tatum PA-C in 3-4 weeks Counseling provided not to miss any dose of medication or discontinuing any made medications, In case he misses multiple doses, please contact family physician or neurology for recommendation (2) Atrial fibrillation: Heart rate better controlled Appreciate input from cardiology Started on metoprolol 25 mg twice daily/plan to transition to once daily Toprol- XL to improve compliance Continue on Eliquis Cardiology follow-up as scheduled (3) Insomnia: Insomnia: Will wean off Xanax Will be discharged on p.o. Remeron (4) Hematuria: No further episode H&H stable (5) LUIS (generalized anxiety disorder): Admission and Anticipated Discharge Date Admission Date: April 17, 2020 Anticipated date of discharge: 04/19/20 Subjective pt denies of any discomfort, no shortness of breath, no dyspnea on exertion Denies of any palpitation no dizzy spell or lightheadedness No seizure-like activity since admission Sitting up on chair, has been ambulating independently, No weakness or paresthesia Review of Systems Review of Systems: All systems reviewed & are unremarkable except as noted in HPI & below Physical Exam Constitutional: WD/WN, vitals as above no acute distress Eyes: PERRL, conjunctivae normal, anicteric sclerae ENMT: external ear and nose normal, oropharynx normal Neck: trachea midline, no thyromegaly Respiratory: normal respiratory effort, lungs clear to auscultation Cardiovascular: RRR, no murmur, no edema Gastrointestinal (Abdomen): normal bowel sounds, soft, nontender, no hepatosplenomegaly Musculoskeletal: no cyanosis or clubbing, extremities motor strength 5/5 Skin: no rashes, warm and dry Neurologic: PERRL, EOMI, accommodation nl, no face palsy, no dysarthria Psychiatric: A+Ox3, euthymic affect Results & Data Results & Data ([facility]) Vital Signs (Past 12 Hours) Vital Signs Temp Pulse Resp BP Pulse Ox 04/18/20 15:41 67 16 126/74 97 04/18/20 13:39 96 04/18/20 11:46 36.8 C 77 18 118/72 96 04/18/20 07:13 37 C 80 18 135/74 98 (1) Atrial fibrillation Atrial fibrillation type: unspecified Qualified Code(s): I48.91 - Unspecified atrial fibrillation
--- NOTE | 2020-04-18 17:15 | Neurology Consultation ---
Date of Consultation April 18, 2020 Assessment & Plan (1) Seizure disorder: Aman Kebede is a 79 yo man w/ PMH of depression/anxiety, pAFib on eliquis, insomnia on chronic xanax and h/o reported epilepsy who p/t [facility] after feeling off and having 3 witnessed seizure-like events in the ED. # H/o seizure disorder: unclear if this is actually epileptic in nature as starring spells are uncommon in adults without a h/o generalized epilepsy and he had a normal 72 hr ambulatory EEG in 06/2019. If events were epileptic in nature, suspect that this cluster is due to the fact that he abruptly discontinued Xanax and had also missed several doses of his regular AEDs. - AEDs: continue home zonegran 200mg bid, lamictal 200mg bid - levels pending - follow up with [facility]or, in 3-4 weeks to check in # Insomnia: - recommend slowly weaning off of xanax and considering remeron instead (given Beers criteria and this current event) Thank you for this interesting consult. Plan of care discussed with primary team. Please call or text with questions. (2) Insomnia: (3) Atrial fibrillation with RVR: History of Present Illness Attending Physician: Diana Escalona MD History of Present Illness Aman Kebede is a 79 yo man w/ PMH of depression/anxiety, pAFib on eliquis, insomnia on chronic xanax and h/o reported epilepsy who p/t [facility] after feeling off and having 3 witnessed seizure-like events in the ED. In the ED, he was noted to have 3 events where he would stare, grab the chair and tap on the wall, being unresponsive to others around him. This would last about 60 seconds with no post ictal period. No tongue biting, loss of bowel/bladder, automatisms or convulsive movements noted. Vitals were notable for patient being afebrile, BP 159/93, heart rate 111 and regular, respiratory rate 18, satting 99% on room air. Labs showed WBC 7.81, hemoglobin 16.1, platelets 150, electrolytes within normal, creatinine 1.09, glucose 117, calcium/phosphorus/magnesium within normal, LFTs within normal, troponin negative, lipase 88, TSH within normal, UA with hematuria and ketones but no signs of infection. COVID-19 negative. Lamictal and Zonegran levels pending at time of evaluation. CT head independently reviewed and showed no hemorrhage or hypodensity, calcifications of bilateral intracranial carotids and vertebral artery segments, minimal generalized atrophy, mild to moderate SVID. Chest x- ray shows no infection. In evaluation this afternoon, he reports that he is close to his baseline but still feels a little bit off. Denies having any further events since yesterday. Reports that his events started after falling from a horse about 10 years ago. Daughter is in the room and describes that he will have staring spells with no associated automatisms, focal motor abnormalities, convulsive movements, tongue biting, loss of bowel or bladder or aura preceding it that will last for several minutes and resolve on its own. Reports that last seizure was last summer or even before that. Reports that he has missed several doses of both the lamotrigine and Zonegran the last few days. He also notes that the night before event started he tried to self discontinued his Xanax despite being on this chronically for insomnia. Allergies Allergy/AdvReac Type Severity Reaction Status Date / Time gadobutrol [From Gadavist] Allergy Unknown Rash Verified 04/17/20 20:03 citalopram AdvReac Unknown Seizure Verified 04/17/20 20:03 Home Medications Home Medications Medication Instructions Recorded Confirmed Type alprazolam 0.5 mg tablet 0.5 mg PO HS 06/28/19 04/17/20 History zonisamide 100 mg capsule 200 mg PO BID cap 06/28/19 04/17/20 History apixaban [Eliquis] 5 mg PO HS 04/17/20 04/17/20 History lamotrigine 200 mg PO BID 04/17/20 04/17/20 History Patient History Medical History Depression LUIS (generalized anxiety disorder) Insomnia Paroxysmal atrial flutter Seizure disorder Surgical History History of cataract surgery History of oral surgery Hx of tonsillectomy Family History Son Atrial fibrillation Father Atrial fibrillation Leukemia Myotonic muscular dystrophy Social History Smoking Status: Never smoker Hx Alcohol Use: No Hx Substance Use: No Preferred Language: Samoan Communication Ability: Effective Beliefs That Will Affect Care: None marital status: / Current Living Situation: Alone Other Information That Helps Us Care for You: No Feels Safe at Home: Yes Safety Concerns: Feels Safe At This Time Review of Systems Review of Systems: 14 point review of systems completed and negative except as in HPI. Exam (Neuro) Physical Exam: General Exam: GEN: NAD, sitting in chair. HEENT: No conjunctival injection, no rhinorrhea. CV: Irregularly irregular, no peripheral edema PULM: Nonlabored respirations on room air. Neuro Exam: MS: Awake and Alert. Oriented to person, place, and month/year. Speech fluent and appropriate without dysarthria or paraphasic errors. Language intact including naming, comprehension, repetition. Cognition and memory mildly impaired. Attention intact. No neglect. CN: Visual brooks full. No extinction to double simultaneous stimuli. No optic disc edema on fundoscopic exam. PERRLA OU. EOMI without nystagmus. Facial sensation intact to LT. Facial muscles full and symmetric. Hearing intact to conversation. Uvula midline with symmetric palatal elevation. Shoulder shrug normal. Tongue midline. MOTOR: Normal bulk and tone. No pronator drift. BUE strength 5/5 at deltoids, biceps, triceps, wrist flexors and extensors, and hand grasp bilaterally. BLE strength 5/5 at iliopsoas, hamstrings, quadriceps, tibialis anterior, and gastrocnemius bilaterally. REFLEXES: 1+ at biceps, triceps, brachioradialis, trace patella and absent Achil les bilaterally. Flexor plantar responses bilaterally. SENSORY: Intact to LT without extinction to double simultaneous stimuli. Vibration intact throughout. COORDINATION: No dysmetria or ataxia on [id number] bilaterally. Normal Elodia bilaterally. GAIT: deferred given physical status Results & Data ([facility]) Vital Signs (Past 12 Hours) Vital Signs Temp Pulse Resp BP Pulse Ox 04/18/20 15:41 67 16 126/74 97 04/18/20 13:39 96 04/18/20 11:46 36.8 C 77 18 118/72 96 04/18/20 07:13 37 C 80 18 135/74 98 PG Care Time/CCT Total # of Minutes Spent Total Time Spent with Patient: Total time spent is greater than 50% in coordination of care (as documented) at patient's floor/unit and/or counseling patient: Coding Level of Care Code 24891 Initial Inpt Care Lvl 3 Diagnoses Seizure disorder G40.909 Insomnia G47.00 Atrial fibrillation with RVR I48.91
[2020-04-18] MEDS: ZONISAMIDE 100MG PO SCH (19:44)
[2020-04-18 22:32] LABS: Amphetamines+Metham, Urine Neg (Neg); Barbiturates, Urine Neg (Neg); Benzodiazepine, Urine Pos (Neg); Cocaine, Urine Neg (Neg); MDMA (Ecstacy), Urine Neg (Neg); Methadone, Urine Neg (Neg); Opiate, Urine Neg (Neg); Phencyclidine, Urine Neg (Neg)
[2020-04-19] MEDS: lamoTRIgine 100 MG TAB PO SCH (07:32)
[2020-04-19] MEDS: METOPROLOL TARTRATE 25 MG TAB PO SCH (07:33)
[2020-04-19] MEDS: ZONISAMIDE 100MG PO SCH (07:33)
[2020-04-19] MEDS: APIXABAN 5 MG TABLET PO SCH (07:34)
--- NOTE | 2020-04-19 11:24 | Cardiology Progress Note ---
Date of Service April 19, 2020 Assessment & Plan (1) Atrial fibrillation with RVR: (2) Moderate mitral regurgitation: (3) Moderate tricuspid regurgitation: Continue metoprolol and Eliquis. No further inpatient cardiology testing or intervention at this time. Proceed with gastroenterology and urologic evaluations as scheduled. Outpatient cardiology follow-up as scheduled. Cardiology will sign off. Please call with questions. Admission and Anticipated Discharge Date Admission Date: April 17, 2020 Subjective Patient seen and examined the bedside. Denies chest pain or palpitations. No signs/symptoms of GI/ blood loss. Offers no concerns/complaints from a cardiovascular perspective. Review of Systems Review of Systems: All systems reviewed & are unremarkable except as noted in HPI & below Physical Exam Constitutional: well developed and well nourished; no acute distress Respiratory: normal respiratory effort, lungs clear to auscultation Auscultation: no crackles, no rales, no rhonchi and no wheezes Cardiovascular: Rate/Rhythm: + irregularly irregular Heart Sounds: normal S1 and normal S2; no murmur and no cardiac rub Palpation: normal PMI Vessels: radial pulses present; no JVD and no carotid bruit Extremities: no edema Gastrointestinal (Abdomen): Inspection/Auscultation: abdomen normal to inspection and normal bowel sounds; abdomen not distended Percussion/Palpation: abdomen soft; abdomen nontender, no guarding and abdomen not rigid Musculoskeletal: Head/Neck/Chest: normocephalic and head atraumatic Skin: no rashes, warm and dry Neurologic: moves all extremities; no focal motor deficits Speech / Cognition: normal speech Motor/Sensory: no tremor Psychiatric: A+Ox3, euthymic affect Results & Data ([facility]) Vital Signs (Past 12 Hours) Vital Signs Temp Pulse Resp BP Pulse Ox 04/19/20 08:06 36.8 C 86 18 133/52 L 95 04/19/20 03:18 36.7 C 88 18 137/86 97 04/18/20 23:43 36.8 C 81 18 143/67 H 98
--- NOTE | 2020-04-20 12:38 | Discharge Summary ---
Date of Service April 20, 2020 Admission HPI Per Admitting Provider This is a 79 yo M with a PMH of seizure disorder, insomnia, MDD, LUIS, paroxysmal A Flutter on Eliquis and kidney stones who presents with subjective fever and feeling disoriented since yesterday. Patient has history of seizure disorder and follows with Dr. Rubalcava of [facility] neurolog[facility]. Started to feel unwell yesterday with subjective fever and chills as well as feeling generally disoriented. In the afternoon, patient was walking his dog near his house and came to lying on the ground. Dates he felt confused at that point and similar to how he feels after seizures in the past. Denies any tongue biting or bowel/bladder incontinence. Continued to feel forgetful and disoriented today so came to ED for further evaluation. Per ER physician, thought to have had a seizure episode while in the ED this evening and was given loading dose of Keppra as well as 1 mg of Ativan. Endorses urinary incontinence around this time but does not remember anything else about the episode. Patient currently feels fatigued but otherwise without complaint. Wonders if his Xanax is contributing to these symptoms. Has taken it for years due to insomnia. Denies any lightheadedness, visual changes, chest pain, palpitations, shortness of breath, nausea, vomiting, abdominal pain, dysuria, diarrhea constipation. Of note, patient has seen [facility] neurology a few times over the past few years but does not remember this and thinks he primarily follows with Dr. Rubalcava. Anti-epileptic medication includes Lamictal 200 mg p.o. twice daily and Zonegran 200 mg twice daily. States he has missed 2-3 doses in the past week due to forgetting to take his medication. Also follows with Dr. Watt of cardiology due to history of paroxysmal a flutter on Eliquis. Was restarted on Eliquis 5 mg twice daily over the summer but developed blood in stool and urine. Decreased his Eliquis dose to 5 mg at bedtime on his own and has not had any gross hematuria or blood in stool since then. Patient lives alone and admits to having difficulty remembering medications. His only family in town is his [id number], who brought him to the ED today. Principal Diagnosis Rapid atrial fibrillation Seizure disorder Discharge Exam Constitutional WD/WN, vitals as above no acute distress Eyes PERRL, conjunctivae normal, anicteric sclerae ENMT external ear and nose normal, oropharynx normal Neck trachea midline, no thyromegaly Respiratory normal respiratory effort, lungs clear to auscultation Cardiovascular RRR, no murmur, no edema Gastrointestinal (Abdomen) normal bowel sounds, soft, nontender, no hepatosplenomegaly Musculoskeletal no cyanosis or clubbing, extremities motor strength 5/5 Skin no rashes, warm and dry Neurologic PERRL, EOMI, accommodation nl, no face palsy, no dysarthria Psychiatric A+Ox3, euthymic affect Discharge Data Allergies Allergy/AdvReac Type Severity Reaction Status Date / Time gadobutrol [From Gadavist] Allergy Unknown Rash Verified 04/17/20 20:03 citalopram AdvReac Unknown Seizure Verified 04/17/20 20:03 Consultations 04/17/20 19:41 ED Decision to Admit Stat 04/17/20 23:36 Consult Cardiology Routine Consult Case Management - Discharge Planning Routine Consult Neurology Routine Ordered Studies 04/17/20 17:21 CT head/brain wo con Stat Hospital Course (1) Seizure disorder: Patient has skipped several doses of his antiseizure meds Presented with brief episode of staring spells /seizure like activity Appreciate input from neurology Recommends to continue home dose of antiseizure medications: zonegran 200mg bid, lamictal 200mg bid Outpatient follow-up with neurology Ghada Tatum PA-C in 3-4 weeks Counseling provided not to miss any dose of medication or discontinuing any made medications, In case he misses multiple doses, please contact family physician or neurology for recommendation (2) Atrial fibrillation: Heart rate better controlled Appreciate input from cardiology Was started on metoprolol 25 mg twice daily/transitioned to once daily Toprol-XL 50 mg to improve compliance-scription sent to pharmacy Continue on Eliquis 5 mg p.o. twice daily Cardiology follow-up as scheduled (3) Insomnia: Insomnia: Patient has been off Xanax for past few days, has to discontinue Xanax Started on Remeron 15 mg p.o. at bedtime for insomnia (4) Hematuria: No further episode H&H stable (5) LUIS (generalized anxiety disorder): Total Time Total Time Spent Total Time Spent (In Minutes): 35 minutes Total Time Includes: Examination of the Patient, Discharge Planning, Medication Reconciliation and Communication With Other Providers Discharge Plan Discharge Items Patient Disposition: Home - Self-Care Reason For Visit: RECURRENT AF Discharge Diagnosis: Rapid atrial fibrillation Seizure disorder Activity: Resume your previous activity Non-emergency contact: Primary Care Provider Call non-emergency contact if: you have any medication questions Follow-up/Referrals: Manjit Ryan MD [Primary Care Provider] - 04/23/20 11:20 am (Date & Time 04/23/2020 11:20 AM Provider Manjit Ryan MD [facility] 05/01/2020 AT 3:45PM YOU ARE SCHEDULED TO SEE DR VICTOR ) Diet: Heart Healthy Addtl Attending Provider Instructions: Follow-up with neurology in 2 to 3 weeks Cardiology follow-up as scheduled Is very important to take medications as directed, do not skip any doses, or reduce any dose of medication without discussing with your physician Pending Studies at Discharge: No Stand-Alone Forms: [facility], Smoking Cessation Medications and DC Order Prescriptions: New Eliquis 5 mg Tablet 5 mg PO BID 30 Days Qty: 60 RF: 3 mirtazapine [Remeron] 15 mg tablet 15 mg PO HS 30 Days Qty: 30 RF: 3 metoprolol succinate [Toprol XL] 50 mg tablet extended release 24 hr 50 mg PO DAILY Qty: 30 RF: 3 Continued zonisamide 100 mg capsule 200 mg PO BID RF: 0 lamotrigine 200 mg tablet 200 mg PO BID RF: 0 Discontinued alprazolam 0.5 mg tablet 0.5 mg PO HS RF: 0 Eliquis 5 mg tablet 5 mg PO HS RF: 0 Discharge Orders: Discharge Order (Routine); Ordered 04/19/20 Ordered By: Diana Escalona Admission Data Admit Date/Time: 04/17/20 22:51 Attending Provider: Diana Escalona Admit Provider: Liang Cervantes Primary Care Provider: Manjit Ryan Other Providers: Liang Cervantes ; Igor Rubalcava ; David Sosa Christina R. ; Yari Tatum ; Eleuterio Omer ; Eleuterio Watt ; Marquise Coronado ; Ambrosio Pisano ; Klaus Calderon ; John Recinos ; Vaughn Stein ; Krista Solorzano ; Mirlande Gauthier ; Jorgito Quiroz Other Interventions: Discharge Summary Assessment (RN) Last Done: 04/19/20 13:39
[2020-04-21 16:41] LABS: 7-Aminoclonaz, Confirm NEGATIVE ng/mL (<25); Hydro-Alp Ur, GC/MS 34 ng/mL (<25); Hydroxyethylflurazepam, Conf NEGATIVE ng/mL (<50); Hydroxymidazolam Ur, GC/MS NEGATIVE ng/mL (<50); Hydroxytriazolam NEGATIVE ng/mL (<50); Lorazepam, Ur GC/MS 261 ng/mL (<50); Nordiazepam, Confirm NEGATIVE ng/mL (<50); Oxazepam Ur, GC/MS NEGATIVE ng/mL (<50); Temazepam, Confirm NEGATIVE ng/mL (<50)
[2020-04-26 11:01] LABS: Zonisamide Zonegran 24.1 mcg/mL (10.0-40.0)
== END 2020-04-19 14:36 | disposition home or self-care (01) | DRG 101 ==
LOC: ED 16:45 → 2S 22:51

== ENCOUNTER 2022-05-15 19:54 | Observation (INO) ==
[2022-05-15 20:39] LABS: Basophils # (auto) 0.04 K/uL (0-0.2); Basophils % (auto) 0.5 %; Eosinophils # (auto) 0.05 K/uL (0-0.50); Eosinophils % (auto) 0.7 %; Hematocrit (blood only) 46.4 % (40.1-51.0); Hemoglobin 16.2 g/dl (14.0-18.0); Immature Granulocytes # (auto) 0.03 K/uL (0.00-0.02); Immature Granulocytes % (auto) 0.4 %; Lymphocytes # (auto) 1.32 K/uL (1.2-3.4); Lymphocytes % (auto) 17.2 %; Mean Corpuscular Hemoglobin 31.8 pg (25.0-34.0); Mean Corpuscular Hgb Conc 34.9 g/dL (32.0-36.0); Mean Platelet Volume 9.4 fL (9.4-12.4); Monocytes % (auto) 10.4 %; Neutrophils # (auto) 5.42 K/uL (1.4-6.5); Neutrophils % (auto) 70.8 %; Platelet Count 213 K/uL (130-400); RDW Coefficient of Variation 12.5 % (11.5-14.5); RDW Standard Deviation 41.8 fL (36.4-46.3); White Blood Count 7.66 K/ul (4.8-10.8)
[2022-05-15 21:06] LABS: Albumin Globulin Ratio 1.7 (0.9-2); Albumin Level 4.5 gm/dl (3.4-5.0); BUN Creatinine Ratio 24.8 (10-20); Bilirubin,Total 1.2 mg/dl (0.2-1.0); Calcium 9.4 mg/dl (8.5-10.1); Creatinine Clr Calc Pharmacy 62.1 ml/min; Est GFR (Non-African American) 69.9 ml/min; Globulin 2.6 gm/dl (2.5-4.0); Total Protein 7.1 gm/dl (6.0-8.3)
[2022-05-15] MEDS ORDERED: SODIUM CHLORIDE 0.9% 1000ML 1,000 ML IV ONE (22:09)
[2022-05-15] MEDS ORDERED: OPTIRAY 320 500ml IV ONE (22:49)
[2022-05-15 23:18] LABS: Magnesium 1.9 mg/dl (1.7-2.4); Phosphorus 2.7 mg/dl (2.5-4.9)
[2022-05-15 23:21] LABS: Troponin I High Sensitivity 12.4 pg/ml (0-20)
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
[2022-05-16] MEDS ORDERED: PHARMACIST DISCHARGE MED REC CONSULT PRN (01:42)
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
[2022-05-16] MEDS ORDERED: MIRTAZAPINE TAB 15 MG TAB PO PRN (03:04)
[2022-05-16] MEDS ORDERED: MAGNESIUM HYDROXIDE SUSP 30 ML UDC PO PRN (03:04)
[2022-05-16] MEDS ORDERED: ALUMINUM/MAGNESIUM SUSP 30 ML UDC PO PRN (03:04)
[2022-05-16] MEDS ORDERED: ACETAMINOPHEN 325 MG TAB PO PRN (03:04)
[2022-05-16] MEDS ORDERED: ONDANSETRON INJ 2 MG/ML 2 ML VIAL IV PRN (03:04)
[2022-05-16] MEDS ORDERED: PNEUMOCOCCAL POLYSACCHARIDES 25 MCG/0.5 ML VIAL/SYR IM ONE (03:50)
--- NOTE | 2022-05-16 07:05 | CT Scan Report ---
CT OF THE HEAD WITHOUT CONTRAST CLINICAL HISTORY: Confusion. COMPARISON STUDY: Head CT April 17, 2020 and May 15, 2022 of 3:27 PM. MRI of the [place] Oct[place] 22018. TECHNIQUE: Helical axial images of the head were obtained without IV contrast. Automated exposure con trol was utilized for the study. A dose lowering technique was utilized adhering to the principles o f ALARA. FINDINGS: No acute intracranial hemorrhage, midline shift or mass effect is present. White matter hyp odensities are similar to prior exam and favor small vessel disease. The ventricular system is unrema rkable. The basal cisterns are patent. No extra-axial collections are present. There are no findings to suggest acute dural sinus thrombosis or acute territorial infarct. No significant calvarial abnorm alities are present. Visualized portions of the sinuses and mastoid air cells are clear. IMPRESSION: No acute intracranial findings. ACT 112: Negative or not required by law. Electronically signed by: Rex Carvajal M.D. 05/16/2022 7:03 AM
[2022-05-16 07:53] LABS: Basophils # (auto) 0.06 K/uL (0-0.2); Basophils % (auto) 0.9 %; Eosinophils # (auto) 0.14 K/uL (0-0.50); Eosinophils % (auto) 2.1 %; Hematocrit (blood only) 42.6 % (40.1-51.0); Hemoglobin 15.3 g/dl (14.0-18.0); Immature Granulocytes # (auto) 0.01 K/uL (0.00-0.02); Immature Granulocytes % (auto) 0.1 %; Lymphocytes # (auto) 1.65 K/uL (1.2-3.4); Lymphocytes % (auto) 24.4 %; Mean Corpuscular Hemoglobin 32.1 pg (25.0-34.0); Mean Corpuscular Hgb Conc 35.9 g/dL (32.0-36.0); Mean Corpuscular Volume 89.3 fL (80.0-100.0); Mean Platelet Volume 9.6 fL (9.4-12.4); Monocytes # (auto) 0.77 K/uL (0.24-0.82); Monocytes % (auto) 11.4 %; Neutrophils # (auto) 4.14 K/uL (1.4-6.5); Neutrophils % (auto) 61.1 %; Platelet Count 207 K/uL (130-400); RDW Coefficient of Variation 12.5 % (11.5-14.5); RDW Standard Deviation 40.9 fL (36.4-46.3); Red Blood Count 4.77 M/uL (4.63-6.08); White Blood Count 6.77 K/ul (4.8-10.8)
[2022-05-16] MEDS: APIXABAN 5 MG TABLET PO SCH ×2 (08:00→20:18)
[2022-05-16] MEDS: METOPROLOL SUCC 50MG EXT REL TAB PO SCH (08:01)
[2022-05-16] MEDS: ASPIRIN 81 MG ECTAB PO SCH (08:01)
[2022-05-16] MEDS: ZONISAMIDE 100 MG CAPSULE PO SCH ×2 (08:01→20:19)
[2022-05-16] MEDS: lamoTRIgine 100 MG TAB PO SCH ×2 (08:01→20:19)
[2022-05-16] MEDS: cefTRIAXone SODIUM 1,000 MG in DEXTROSE 5% 50 ML IV SCH (08:09)
[2022-05-16 08:31] LABS: BUN Creatinine Ratio 23.1 (10-20); Calcium 8.8 mg/dl (8.5-10.1); Chol HDL Ratio 2.8 (0-5); Est GFR (African American) 98.8 ml/min; Est GFR (Non-African American) 85.3 ml/min; Potassium 3.2 mmol/L (3.5-5.1)
[2022-05-16 08:43] LABS: Estimated Average Glucose 91 mg/dl; Hemoglobin A1C 4.8 % (4.5-5.6)
--- NOTE | 2022-05-16 08:56 | CT Scan Report ---
CT ANGIOGRAPHY OF THE NECK WITH CONTRAST CLINICAL HISTORY: confusion, amnestic, sz d/o COMPARISON STUDY: Carotid ultrasound February 06, 2015. Technique: CT angiography of the carotid and vertebral arteries was obtained using Optiray and 3D rec onstruction on an independent workstation. NASCET criteria was utilized. Automated exposure control was utilized for the study. A dose lowering technique was utilized adhering to the principles of ALA RA. Findings: Visualized portions of the lung apices are unremarkable. There is no cervical lymphadenopat hy. No acute cervical spine fracture is noted. There is no significant stenosis within the bilateral common carotid, cervical internal carotid or vertebral arteries. There is mild extrinsic compression of the left vertebral artery at the C5-C6 level due to adjacent osteophytes. There is no dissection o r aneurysm within the major vessels of the neck. CTA of the head will be reported separately. IMPRESSION: Unremarkable CTA of the neck. ACT 112: Negative or not required by law. Electronically signed by: Rex Carvajal M.D. 05/16/2022 8:53 AM
--- NOTE | 2022-05-16 08:57 | CT Scan Report ---
CTA ANGIOGRAPHY OF THE HEAD CLINICAL HISTORY: confusion, amnestic, sz d/o COMPARISON STUDY: Head CT April 17, 2020. MRI of the brain May 04, 2019. TECHNIQUE: Helical axial images of the head were obtained following uneventful intravenous administr ation of 115 cc of Optiray. Sagittal and coronal reconstructions were viewed as well as maximal inten sity projections on an independent 3-D workstation. Automated exposure control was utilized for the study. A dose lowering technique was utilized adhering to the principles of ALARA. CT DOSE: 1187.66 mGy.cm FINDINGS: Ventricular system is unremarkable. Basal cisterns are patent. There are no extra-axial col lections. No acute hemorrhage is identified on this contrast enhanced exam. There is moderate calcifi ed plaque within bilateral cavernous carotids. There is mild stenosis of the bilateral cavernous luque tids. No central vessel occlusion is identified. There is no intracranial aneurysm. Posterior circula tion is intact. Major dural sinuses are patent. IMPRESSION: 1. No central vessel occlusion. No intracranial aneurysm. 2. Mild stenosis of the bilateral cavernous carotids due to calcified plaque. ACT 112: Negative or not required by law. Electronically signed by: Rex Carvajal M.D. 05/16/2022 8:56 AM
--- NOTE | 2022-05-16 09:30 | Magnetic Resonance Report ---
MR brain wo con HISTORY: 81 years-old Male TIA like symptoms, memory loss acutely altered mental status COMPARISON: Head CT 05/15/2022, brain MRI 05/04/2019 TECHNIQUE: Multiplanar multisequence MRI of the brain was obtained without the use of IV contrast. FINDINGS: Orchid Worker localizer images demonstrate no gross extracranial abnormality. No restricted diffusion identif ied to suggest acute or subacute infarct. Midline structures appear unremarkable. Degenerative change s of the cervical spine. There is no acute intracranial hemorrhage, midline shift, abnormal extra-axi al collection, hydrocephalus or intracranial mass. No pathologic blooming artifact. Mild involutional changes with moderate T2/FLAIR hyperintense foci throughout the white matter, mildly progressed from the 2019 study. Cerebral venous sinuses and major arterial flow voids appear patent.. The mastoid air cells and paran fly sinuses are generally clear. Prior bilateral lens repair. Skull and soft tissues are unremarkabl e. IMPRESSION: 1. No acute intracranial abnormality. No acute or subacute infarct. 2. Involutional changes with moderate chronic microvascular ischemic disease ACT 112: Negative or not required by law. The above report was generated using voice recognition software. It may contain grammatical, syntax o r spelling errors. Electronically signed by: Dragan Hillman M.D. 05/16/2022 9:28 AM
[2022-05-16] MEDS ORDERED: POTASSIUM CHLORIDE CRTAB 20 MEQ TABCR PO STA (10:46)
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
--- NOTE | 2022-05-16 15:18 | Electrocardiogram Report ---
Test Reason : Blood Pressure : / mmHG Vent. Rate : 088 BPM Atrial Rate : 104 BPM P-R Int : 000 ms QRS Dur : 102 ms QT Int : 368 ms P-R-T Axes : 000 079 014 degrees QTc Int : 445 ms Atrial fibrillation Poor R wave progression, consider anterior MT vs. lead placement vs. LVH Abnormal ECG When compared with ECG of 15-MAY-2022 14:31, (unconfirmed) Nonspecific T wave abnormality no longer evident in Anterior leads Confirmed by Sean Harkins ([id number]) on 05/16/2022 3:18:24 PM Referred By: REFERRED SELF Confirmed By:Sean Harkins
[2022-05-17 06:26] LABS: Basophils # (auto) 0.05 K/uL (0-0.2); Basophils % (auto) 0.9 %; Eosinophils # (auto) 0.24 K/uL (0-0.50); Eosinophils % (auto) 4.2 %; Hematocrit (blood only) 44.2 % (40.1-51.0); Hemoglobin 15.6 g/dl (14.0-18.0); Immature Granulocytes # (auto) 0.02 K/uL (0.00-0.02); Immature Granulocytes % (auto) 0.4 %; Lymphocytes # (auto) 1.79 K/uL (1.2-3.4); Lymphocytes % (auto) 31.3 %; Mean Corpuscular Hgb Conc 35.3 g/dL (32.0-36.0); Mean Corpuscular Volume 90.6 fL (80.0-100.0); Mean Platelet Volume 9.8 fL (9.4-12.4); Monocytes # (auto) 0.61 K/uL (0.24-0.82); Monocytes % (auto) 10.7 %; Neutrophils % (auto) 52.5 %; Platelet Count 194 K/uL (130-400); RDW Coefficient of Variation 12.5 % (11.5-14.5); RDW Standard Deviation 41.3 fL (36.4-46.3); Red Blood Count 4.88 M/uL (4.63-6.08); White Blood Count 5.71 K/ul (4.8-10.8)
[2022-05-17 07:29] LABS: Albumin Globulin Ratio 1.5 (0.9-2); Albumin Level 3.7 gm/dl (3.4-5.0); Bilirubin,Total 1.1 mg/dl (0.2-1.0); Calcium 8.9 mg/dl (8.5-10.1); Creatinine Clr Calc Pharmacy 60.8 ml/min; Est GFR (Non-African American) 70.8 ml/min; Globulin 2.4 gm/dl (2.5-4.0); Potassium 4.1 mmol/L (3.5-5.1); Total Protein 6.1 gm/dl (6.0-8.3)
[2022-05-17] MEDS: lamoTRIgine 100 MG TAB PO SCH (08:44)
[2022-05-17] MEDS: ZONISAMIDE 100 MG CAPSULE PO SCH (08:45)
[2022-05-17] MEDS: APIXABAN 5 MG TABLET PO SCH (08:45)
[2022-05-17] MEDS: METOPROLOL SUCC 50MG EXT REL TAB PO SCH (08:45)
[2022-05-17] MEDS: ASPIRIN 81 MG ECTAB PO SCH (08:45)
[2022-05-17] MEDS ORDERED: LACOSAMIDE 50 MG TABLET PO SCH (09:15)
[2022-05-17] MEDS: cefTRIAXone SODIUM 1,000 MG in DEXTROSE 5% 50 ML IV SCH (09:55)
[2022-05-17] MEDS ORDERED: STROKE PATIENT DISCHARGE STA (11:33)
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
[2022-05-20 13:51] LABS: Lamictal(Lamotrigine) 1.5 mcg/mL (4.0-18.0); Zonisamide Zonegran 21.6 mcg/mL (10.0-40.0)
== END 2022-05-17 13:15 | disposition home health service (06) | DRG 689 ==
LOC: ED 19:54 → 2S 05-16 01:41 → SUATTDRO 05-16 01:41 → INTOOBSV 05-16 01:41 → 2S 05-16 02:09